=== PATIENT | female | born 1960 | race Caucasian/White ===

== ENCOUNTER 2018-05-06 13:25 | Emergency (ER) | payer BC ==
[2018-05-06 14:37] VITALS: BP 141/87
--- NOTE | 2018-05-06 15:20 | EDM.PDOC ---
ED HPI GENERAL MEDICAL PROBLEM - General Chief Complaint: Lower Extremity Injury/Pain Stated Complaint: SWOLLEN TOE ON R FT Time Seen by Provider: 05/06/18 14:45 Source of Information: Reports: Patient History Limitations: Reports: No Limitations - History of Present Illness INITIAL COMMENTS - FREE TEXT/NARRATIVE: 58 yo with hx of morbid obesity and type DM presents with concerns of discoloration of the right 4th toe Has diabetic neuropathy Had right 5th toe amputated This morning noticed purple discoloration on top of right 4th toe Is concerned perhaps it is infected No significant [place] and in/out wheel chair No new shoes or socks, no trauma Otherwise feels well - Related Data Allergies Allergy/AdvReac Type Severity Reaction Status Date / Time pregabalin [From Lyrica] Allergy Chest Pain Verified 05/06/18 14:06 Home Meds: Home Meds Insulin Degludec [Tresiba Flextouch U-200] 46 units SUBCUT BEDTIME 03/28/16 [ History] Liraglutide [Victoza] 1.8 mg SUBCUT DAILY 12/28/16 [History] Spironolactone [Aldactone] 50 mg PO BID 02/08/17 [History] DULoxetine [Cymbalta] 60 mg PO DAILY 05/03/17 [History] Acetaminophen with Codeine [Tylenol with Codeine #3 Tablet] 1 - 2 tab PO Q4H PRN 07/26/17 [History] cephALEXin [Keflex] 500 mg PO Q8H #21 cap 05/06/18 [Rx] Past Medical History HEENT History: Reports: Cataract, Impaired Vision 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: , 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 Musculoskeletal History: Reports: Back Pain, Chronic, Fracture Psychiatric History: Reports: Depression Endocrine/Metabolic History: Reports: Diabetes, Type II, Obesity/BMI 30+ - Past Surgical History HEENT Surgical History: Reports: Cataract Surgery Musculoskeletal Surgical History: Reports: Other (See Below) Dermatological Surgical History: Reports: Other (See Below) Social & Family History - Tobacco Use Smoking Status *Q: Never Smoker Review of Systems - Review of Systems Review Of Systems: See Below Constitutional: Reports: No Symptoms Eyes: Reports: No Symptoms Ears: Reports: No Symptoms Nose: Reports: No Symptoms Mouth/Throat: Reports: No Symptoms Respiratory: Reports: No Symptoms Cardiovascular: Reports: No Symptoms GI/Abdominal: Reports: No Symptoms Genitourinary: Reports: No Symptoms Musculoskeletal: Reports: No Symptoms Skin: Reports: Change in Color Neurological: Reports: No Symptoms Psychiatric: Reports: No Symptoms ED EXAM, GENERAL - Physical Exam Exam: See Below Exam Limited By: No Limitations General Appearance: Alert, No Apparent Distress Nose: Normal Inspection Throat/Mouth: Normal Inspection Head: Atraumatic Neck: Normal Inspection Respiratory/Chest: No Respiratory Distress Cardiovascular: Regular Rate, Rhythm GI/Abdominal: Soft, No Distention Extremities: Other (right 4th toe with purple discoloration, gross sensation and cap refill intact. No warmth or redness) Psychiatric: Normal Affect Course - Vital Signs Last Recorded V/S: Last Vital Signs Temp 35.7 C 05/06/18 14:44 Pulse 73 05/06/18 14:44 Resp 16 05/06/18 14:44 BP 141/87 H 05/06/18 14:44 Pulse Ox 95 05/06/18 14:44 - Re-Assessments/Exams Free Text/Narrative Re-Assessment/Exam: 58 yo with hx of type II DM, neuropathy, prior right 5 toe amp presents with concerns of discoloration of the right 4th toe Doesn't appear infected on exam Likely due to worsening chronic microvascular disease, no intervention current indicated for this Patient extremely concerned it is infected, prescribed course of keflex until she can see PCP or stone and plate preparer apprentice 05/06/18 15:25 Departure - Departure Time of Disposition: 15:19 Disposition: Home, Self-Care 01 Clinical Impression: Discolored skin - Discharge Information Prescriptions: cephALEXin [Keflex] 500 mg PO Q8H #21 cap Referrals: Jordan Zuniga NP [Primary Care Provider] - Forms: ED Department Discharge Additional Instructions: As discussed, please follow up with your primary doctor or stone and plate preparer apprentice this week Take the prescribed antibiotic
== END 2018-05-06 15:37 | disposition home or self-care (01) ==
LOC: JP.ED 13:25
DX: L81.9 Disorder of pigmentation, unspecified (principal); E11.40 Type 2 diabetes mellitus with diabetic neuropathy, unspecified; Z79.899 Other long term (current) drug therapy; Z89.422 Acquired absence of other left toe(s); Z79.4 Long term (current) use of insulin; Z88.8 Allergy status to other drugs, medicaments and biological substances
CPT/HCPCS: 99283

== ENCOUNTER 2018-06-20 14:55 | Outpatient (CLI) | payer BC ==
[~2018-06-20 14:55] MED LIST: Bupivacaine 0.5% 30 ML SDV ONE; methylPREDNISolone Acetate 40 MG/ML SDV ONE
[2018-06-20 15:33] VITALS: BP 157/89; PULSE 79
--- NOTE | 2018-06-20 16:42 | ANES ---
DATE OF SERVICE: 06/20/2018 INDICATION: Mrs. Link is a 58-year-old female patient, referred to the [facility] to us by Jordan Zuniga. She is here today for trigger point injections. We have been having a very difficult time getting her approved for an epidural steroid injection under fluoroscopy. So, she is in so much pain that we decided just to do trigger points today and see if we can at least get her by until she is approved. She has been having quite a bit of left-sided back pain as well as down into her leg and foot. Therefore, I think the epidurals would really benefit her. Please see the orders for the patient's preprocedure diagnosis as well as ICD-10 code. The risks and benefits of the procedure were explained to the patient, she wished to proceed with trigger point injections. TECHNIQUE: I did find 21 noticeable left-sided lumbosacral trigger points. I injected each of these with 1 to 2 mL of 0.5% Sensorcaine with a Depo-Medrol mixture. I did inject more than 3 muscle groups. She tolerated the procedure very nicely. Her vital signs remained stable throughout the procedure and nurse was with me for the entire procedure. There were no anesthesia complications noted. She is going to return in 7 weeks for trigger point injections unless she needs to come in here earlier. Again, we will wait for approval for epidural steroid injection to schedule her for that. Douglas Brambila CRNA /[id number]
== END 2018-06-20 15:33 | disposition home or self-care (01) ==
LOC: JP.PAIN 14:55
PROVIDERS: ATTEND Nurse Practitioner Family
DX: M51.16 Intervertebral disc disorders with radiculopathy, lumbar region (principal); M79.10 Myalgia, unspecified site
CPT/HCPCS: 20553; J1030; J3490

== ENCOUNTER 2018-08-19 15:57 | Emergency (ER) | payer BC ==
[2018-08-19 16:48] VITALS: BP 129/78; PULSE 81
--- NOTE | 2018-08-19 17:42 | EDM.PDOC ---
ED HPI GENERAL MEDICAL PROBLEM - General Chief Complaint: Skin Complaint Stated Complaint: ULCER ON LEFT FOOT Time Seen by Provider: 08/19/18 17:45 Source of Information: Reports: Patient History Limitations: Reports: No Limitations - History of Present Illness INITIAL COMMENTS - FREE TEXT/NARRATIVE: pt has a ulcer present on the left great toe. This is very smelly. She was recently seen by Dr Solorio and Dr mauricio. Onset: Gradual, Other ( It has changed over the last 2 days. ) Duration: Hour(s): Location: Reports: Lower Extremity, Left Associated Symptoms: Reports: No Other Symptoms Left Foot Pain Score (Numeric/FACES): 1 - Related Data Allergies Allergy/AdvReac Type Severity Reaction Status Date / Time pregabalin [From Lyrica] Allergy Chest Pain Verified 08/19/18 16:49 Home Meds: Home Meds Insulin Degludec [Tresiba Flextouch U-200] 64 units SUBCUT BEDTIME 03/28/16 [ History] Liraglutide [Victoza] 1.8 mg SUBCUT DAILY 12/28/16 [History] Spironolactone [Aldactone] 50 mg PO BID 02/08/17 [History] DULoxetine [Cymbalta] 60 mg PO DAILY 05/03/17 [History] Acetaminophen with Codeine [Tylenol with Codeine #3 Tablet] 1 - 2 tab PO Q4H PRN 07/26/17 [History] Empagliflozin [Jardiance] 10 mg PO DAILY 08/19/18 [History] Past Medical History HEENT History: Reports: Cataract, Impaired Vision 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: , 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 Musculoskeletal History: Reports: Back Pain, Chronic, Fracture Psychiatric History: Reports: Depression Endocrine/Metabolic History: Reports: Diabetes, Type II, Obesity/BMI 30+ - Infectious Disease History Infectious Disease History: Reports: Chicken Pox, Measles, Mumps - Past Surgical History HEENT Surgical History: Reports: Cataract Surgery Dermatological Surgical History: Reports: Other (See Below) Social & Family History - Tobacco Use Smoking Status *Q: Never Smoker Second Hand Smoke Exposure: No - Caffeine Use Caffeine Use: Reports: Coffee, Soda - Recreational Drug Use Recreational Drug Use: No ED ROS GENERAL - Review of Systems Review Of Systems: See Below Constitutional: Reports: No Symptoms HEENT: Reports: No Symptoms Respiratory: Reports: No Symptoms Cardiovascular: Reports: No Symptoms Endocrine: Reports: No Symptoms GI/Abdominal: Reports: No Symptoms : Reports: No Symptoms Musculoskeletal: Reports: Other (ulcer on the left great toe area. ) Skin: Reports: No Symptoms Neurological: Reports: No Symptoms Psychiatric: Reports: No Symptoms ED EXAM, SKIN/RASH Exam: See Below Text/Narrative:: pt has a ulcer on the left great toe. Exam Limited By: No Limitations General Appearance: Alert, Mild Distress Extremities: Other (left great toe has a smeely ulcer which looks necrotic in the center. There is no definite pus type drainage. ) Neurological: Alert, Oriented, Normal Cognition Course - Vital Signs Last Recorded V/S: Last Vital Signs Temp 36.3 C 08/19/18 16:56 Pulse 81 08/19/18 16:56 Resp 16 08/19/18 16:56 BP 129/78 08/19/18 16:56 Pulse Ox 95 08/19/18 16:56 - Orders/Labs/Meds Orders: Active Orders 24 hr Category Date Time Status Toes Great Toe Lt TA [CR] Stat Exams 08/19/18 17:09 Taken CULTURE WOUND + SMEAR [RM] Stat Lab 08/19/18 17:14 Results - Re-Assessments/Exams Free Text/Narrative Re-Assessment/Exam: 08/19/18 17:50 xray was obtained and there is questionable bone involvement. will await radiology reading Departure - Departure Time of Disposition: 17:37 Disposition: Home, Self-Care 01 Condition: Fair Clinical Impression: Chronic ulcer of left foot with necrosis of muscle - Discharge Information Referrals: Jordan Zuniga RAIL CAR PAINTER/SANDBLASTER [Primary Care Provider] - Forms: ED Department Discharge Care Plan Goals: appt with Dr Solorio Monday or Monday, keep covered with a dry dressing, augmentin 875 bid for the next 3 days-- Dr Solorio will decide regarding ongoing antibiotics. He may want to get Dr mauricio involved - My Orders Last 24 Hours: My Active Orders 08/19/18 17:09 Toes Great Toe Lt TA [CR] Stat 08/19/18 17:14 CULTURE WOUND + SMEAR [RM] Stat - Assessment/Plan Last 24 Hours: My Active Orders 08/19/18 17:09 Toes Great Toe Lt TA [CR] Stat 08/19/18 17:14 CULTURE WOUND + SMEAR [RM] Stat
[2018-08-19] MEDS ORDERED: Amoxicillin/Clavulanate K 875-125 MG Tab PO ONE (17:57)
--- NOTE | 2018-08-19 17:59 | CRLCR ---
INDICATION: Left great toe ulcer. TECHNIQUE: Three view. FINDINGS: The soft tissue defect adjacent to the 1st metatarsal head is noted medially. No destructive bony changes are seen of the left great toe. Degenerative change of the interphalangeal joint is noted. IMPRESSION: Soft tissue defect identified base of left great toe. No destructive bony changes are noted. No fracture is seen. Dictated by Keith Stuart MD @ 08/19/2018 5:58:56 PM Dictated by: Keith Stuart MD @ 08/19/2018 17:59:04 (Electronically Signed)
== END 2018-08-19 18:12 | disposition home or self-care (01) ==
LOC: JP.ED 15:57
DX: E11.621 Type 2 diabetes mellitus with foot ulcer (principal); L97.523 Non-pressure chronic ulcer of other part of left foot with necrosis of muscle; E66.9 Obesity, unspecified; Z79.899 Other long term (current) drug therapy; Z79.4 Long term (current) use of insulin; Z88.8 Allergy status to other drugs, medicaments and biological substances; Z68.43 Body mass index [BMI] 50.0-59.9, adult
CPT/HCPCS: 73660; 87070; 87077; 87205; 99283; A9270

== ENCOUNTER 2018-08-20 14:35 | Inpatient (IN) | payer BC ==
[2018-08-20] MEDS: Piperacillin/Tazobactam/Dext 3.375 GM in Premix Bag 1 BAG IV SCH ×2 (15:53→22:13)
[2018-08-20] MEDS ORDERED: Acetaminophen/Codeine 300-30 MG Tab PO PRN (16:25)
[2018-08-20] MEDS ORDERED: Glucose Gel 15 GM in 37.5 GM Tube PO PRN (16:28)
[2018-08-20] MEDS ORDERED: 50% Dextrose in Water 50 ML Syringe IV PRN (16:28)
[2018-08-20] MEDS ORDERED: Sodium Chloride 0.9% 10 ML Syringe FLUSH PRN (16:31)
[2018-08-20] MEDS ORDERED: Polyethylene Glycol 3350 Powder 17 GM Packet PO PRN (16:31)
[2018-08-20] MEDS ORDERED: Acetaminophen 325 MG Tab PO PRN (16:31)
[2018-08-20] MEDS ORDERED: Ondansetron 4 MG/2 ML SDV IV PRN (16:31)
--- NOTE | 2018-08-20 16:53 | PCM.HP ---
H&P History of Present Illness - General Date of Service: 08/20/18 Admit Problem/Dx: Admission Diagnosis/Problem Admission Diagnosis/Problem Diabetic foot ulcer Source of Information: Patient, Provider, RN Notes Reviewed History Limitations: Reports: No Limitations - History of Present Illness Initial Comments - Free Text/Narative: Ms. Link is a 58-year-old woman who was admitted through the emergency department with weakness, secondary to an infected diabetic foot ulcer on the left foot. She has had difficulty with an ulcer on the left medial foot for the past extubate weeks. She had been followed regularly in the clinic and the ulcer was doing well until a few days ago when she is noted increased swelling at the base of the left first toe and malodorous drainage from the ulcer. She has felt more weak and appetite has been somewhat diminished. She is not aware of significant temperature elevation or chills. She has a long-standing history of type 2 diabetes mellitus and reports poor control with blood sugars running in the 240 range. - Related Data Allergies/Adverse Reactions: Allergies Allergy/AdvReac Type Severity Reaction Status Date / Time pregabalin [From Lyrica] Allergy Chest Pain Verified 08/19/18 16:49 Home Medications: Home Meds Insulin Degludec [Tresiba Flextouch U-200] 64 units SUBCUT BEDTIME 03/28/16 [ History] Liraglutide [Victoza] 1.8 mg SUBCUT BEDTIME 12/28/16 [History] Spironolactone [Aldactone] 50 mg PO BID 02/08/17 [History] DULoxetine [Cymbalta] 60 mg PO DAILY 05/03/17 [History] Acetaminophen with Codeine [Tylenol with Codeine #3 Tablet] 1 - 2 tab PO Q4H PRN 07/26/17 [History] Empagliflozin [Jardiance] 10 mg PO DAILY 08/19/18 [History] Amoxicillin/Potassium Clav [Augmentin 875-125 Tablet] 1 each PO BID 08/20/18 [ History] Aspirin [Halfprin] PO DAILY 08/20/18 [History] atorvaSTATin [Lipitor] 10 mg PO 08/20/18 [History] Past Medical History HEENT History: Reports: Cataract, Impaired Vision 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: , 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 Musculoskeletal History: Reports: Back Pain, Chronic, Fracture Psychiatric History: Reports: Depression Endocrine/Metabolic History: Reports: Diabetes, Type II, Obesity/BMI 30+ - Infectious Disease History Infectious Disease History: Reports: Chicken Pox, Measles, Mumps - Past Surgical History HEENT Surgical History: Reports: Cataract Surgery Dermatological Surgical History: Reports: Other (See Below) Social & Family History - Family History Family Medical History: Noncontributory - Tobacco Use Smoking Status *Q: Never Smoker - Caffeine Use Caffeine Use: Reports: Coffee - Recreational Drug Use Recreational Drug Use: No H&P Review of Systems - Review of Systems: Review Of Systems: See Below General: Reports: Malaise, Weakness, Decreased Appetite. Denies: Fever, Chills HEENT: Reports: No Symptoms Pulmonary: Reports: No Symptoms Cardiovascular: Reports: No Symptoms Gastrointestinal: Reports: No Symptoms Genitourinary: Reports: No Symptoms Musculoskeletal: Reports: Other (Ulcer with drainage medial aspect left foot) Skin: Reports: No Symptoms Psychiatric: Reports: No Symptoms Neurological: Reports: No Symptoms Hematologic/Lymphatic: Reports: No Symptoms Immunologic: Reports: No Symptoms Exam - Exam Exam: See Below - Vital Signs Weight: 374 lb - Exam Quality Assessment: DVT Prophylaxis HEENT: Conjunctiva Clear, Hearing Intact, Mucosa Moist & [place], Normal Nasal Septum, Posterior Pharynx Clear, Pupils Equal Neck: Supple, Trachea Midline, +2 Carotid Pulse wo Bruit Lungs: Clear to Auscultation, Normal Respiratory Effort Cardiovascular: Regular Rate, Regular Rhythm, Normal S1, Normal S2. No: Systolic Murmur, Diastolic Murmur GI/Abdominal Exam: Soft, Non-Tender, No Organomegaly, No Distention Extremities: Non-Tender, Other (1 cm ulcer medial aspect left first MTP joint, with associated erythema and swelling of the toe and surrounding area) Neurological: Cranial Nerves Intact, Strength Equal Bilateral, Normal Speech, Normal Tone. No: Sensation Intact (Peripheral neuropathy) Neuro Extensive - Mental Status: Alert, Oriented x3, Normal Mood/Affect, Normal Cognition, Memory Intact - Patient Data Lab Results Last 24 hrs: Laboratory Results - last 24 hr 08/20/18 Range/Units 16:14 WBC 10.4 (4.5-11.0) K/uL RBC 4.69 (3.30-5.50) M/uL Hgb 13.4 (12.0-15.0) g/dL Hct 41.0 (36.0-48.0) % MCV 87 (80-98) fL MCH 29 (27-31) pg MCHC 33 (32-36) % Plt Count 222 (150-400) K/uL Neut % (Auto) 65 (36-66) % Lymph % (Auto) 26 (24-44) % [place] % (Auto) 7 H (2-6) % Eos % (Auto) 1 L (2-4) % Baso % (Auto) 0 (0-1) % Result Diagrams: 08/20/18 16:14 *Q Meaningful Use (ADM) - VTE Risk Assess *Q Each Risk Factor Represents 1 Point: Age 41 - 59 years, Obesity ( BMI > 25 kg/m2 ), Medical Patient Currently on Bedrest Total Score 1 Point Risk Factors: 3 Each Risk Factor Represents 2 Points: None Total Score 2 Point Risk Factors: 0 Each Risk Factor Represents 3 Points: None Total Score 3 Point Risk Factors: 0 Each Risk Factor Represents 5 Points: None Total Score 5 Point Risk Factors: 0 Venous Thromboembolism Risk Factor Score *Q: 3 Problem List Initiated/Reviewed/Updated: Yes Orders Last 24hrs: Active Orders 24 hr Category Date Time Status Patient Status [ADT] Routine ADT 08/20/18 16:29 Active Bedrest Bedside Commode [RC] ASDIRECTED Care 08/20/18 15:48 Active Blood Glucose Check, Bedside [RC] QIDACANDBED Care 08/20/18 16:29 Active Communication Order [RC] STAT Care 08/20/18 16:29 Active Diabetes Education [RC] Click to Edit Care 08/20/18 16:29 Active Dressing Change [Wound Care] [RC] DAILY Care 08/20/18 16:03 Active EKG Documentation Completion [RC] ASDIRECTED Care 08/20/18 15:59 Active Elevate Extremity [RC] ASDIRECTED Care 08/20/18 15:48 Active Height and Weight [RC] DAILY Care 08/20/18 16:29 Active Intake and Output [RC] QSHIFT Care 08/20/18 16:29 Active Notify Provider Vital Signs [RC] ASDIRECTED Care 08/20/18 16:29 Active Notify Provider [RC] PRN Care 08/20/18 16:29 Active Oxygen Therapy [RC] PRN Care 08/20/18 16:29 Active Peripheral IV Care [RC] . DIRECTED Care 08/20/18 16:33 Active VTE/DVT Education [RC] Per Unit Routine Care 08/20/18 16:29 Active Vital Signs [RC] Q4H Care 08/20/18 16:29 Active Vital Signs [RC] Q8H Care 08/20/18 15:47 Inactive PT Evaluation and Treatment [CONS] Routine Cons 08/20/18 16:31 Active Consistent Carbohydrate Diet [DIET] Diet 08/20/18 Dinner Active Nothing per Oral After Midnight Diet [DIET] Diet 08/21/18 Breakfast Active CV Ankle Brachial Index (SHIRA) [US] Routine Exams 08/20/18 16:01 Ordered Lwr Ext Non Joint w Cont Lt [MR] Routine Exams 08/20/18 15:59 Ordered BASIC METABOLIC PANEL,BMP [CHEM] AM Lab 08/21/18 05:11 Ordered C-REACTIVE PROTEIN [CHEM] Routine Lab 08/20/18 16:14 Received CBC W/O DIFF,HEMOGRAM [HEME] AM Lab 08/21/18 05:11 Ordered CBC WITH AUTO DIFF [HEME] Routine Lab 08/20/18 16:14 Results COMPREHENSIVE METABOLIC PN,CMP [CHEM] Routine Lab 08/20/18 16:14 Received GLUCOSE POC LAB TO COLLECT [POC] QIDACANDBED Lab 08/20/18 21:00 Ordered GLUCOSE POC LAB TO COLLECT [POC] QIDACANDBED Lab 08/21/18 07:30 Ordered GLUCOSE POC LAB TO COLLECT [POC] QIDACANDBED Lab 08/21/18 11:30 Ordered GLUCOSE POC LAB TO COLLECT [POC] QIDACANDBED Lab 08/21/18 16:30 Ordered GLUCOSE POC LAB TO COLLECT [POC] QIDACANDBED Lab 08/21/18 21:00 Ordered GLUCOSE POC LAB TO COLLECT [POC] QIDACANDBED Lab 08/22/18 07:30 Ordered GLUCOSE POC LAB TO COLLECT [POC] QIDACANDBED Lab 08/22/18 11:30 Ordered GLUCOSE POC LAB TO COLLECT [POC] QIDACANDBED Lab 08/22/18 16:30 Ordered GLUCOSE POC LAB TO COLLECT [POC] QIDACANDBED Lab 08/22/18 21:00 Ordered GLUCOSE POC LAB TO COLLECT [POC] QIDACANDBED Lab 08/23/18 07:30 Ordered GLUCOSE POC LAB TO COLLECT [POC] QIDACANDBED Lab 08/23/18 11:30 Ordered GLUCOSE POC LAB TO COLLECT [POC] QIDACANDBED Lab 08/23/18 16:30 Ordered GLUCOSE POC LAB TO COLLECT [POC] QIDACANDBED Lab 08/23/18 21:00 Ordered GLUCOSE POC LAB TO COLLECT [POC] QIDACANDBED Lab 08/24/18 07:30 Ordered GLUCOSE POC LAB TO COLLECT [POC] QIDACANDBED Lab 08/24/18 11:30 Ordered GLUCOSE POC LAB TO COLLECT [POC] QIDACANDBED Lab 08/24/18 16:30 Ordered GLUCOSE POC LAB TO COLLECT [POC] QIDACANDBED Lab 08/24/18 21:00 Ordered GLUCOSE POC LAB TO COLLECT [POC] QIDACANDBED Lab 08/25/18 07:30 Ordered GLUCOSE POC LAB TO COLLECT [POC] QIDACANDBED Lab 08/25/18 11:30 Ordered MAGNESIUM [CHEM] AM Lab 08/21/18 05:11 Ordered SEDIMENTATION RATE MANUAL [HEME] Routine Lab 08/20/18 16:14 Results Acetaminophen [Tylenol] Med 08/20/18 16:31 Active 650 mg PO Q4H PRN Acetaminophen/Codeine [Tylenol with Codeine No.3 300MG/ Med 08/20/18 16:25 Active 30MG] 1 - 2 tab PO Q4H PRN Aspirin [Halfprin] Med 08/21/18 09:00 Unverified DOSE UNIT RTE FREQ DULoxetine [Cymbalta] Med 08/21/18 09:00 Active 60 mg PO DAILY Dextrose 50% in Water Med 08/20/18 16:28 Active 50 ml IV ONETIME PRN Dextrose [Glutose 15] Med 08/20/18 16:28 Active 15 gm PO ONETIME PRN Empagliflozin [Jardiance] Med 08/21/18 09:00 Ordered 10 mg PO DAILY Heparin Sodium Med 08/20/18 18:00 Active 5,000 units SUBCUT Q8H Insulin Degludec [Tresiba Flextouch U-200] Med 08/20/18 21:00 Ordered 64 units SUBCUT BEDTIME Insulin Lispro [HumaLOG] Med 08/20/18 17:00 Active See Protocol SUBCUT QIDACANDBED Lactobacillus Rhamnosus GG [Culturelle] Med 08/20/18 18:00 Active 1 cap PO BID Liraglutide [Victoza] Med 08/20/18 21:00 Active 1.8 mg SUBCUT BEDTIME Ondansetron [Zofran] Med 08/20/18 16:31 Ordered 4 mg IV Q4H PRN Piperacillin/Tazobactam/Dext [Zosyn in Dextrose Iso- Med 08/20/18 16:00 Active Osmotic 3.375 GM] 3.375 gm Premix Bag 1 bag IV Q6H Polyethylene Glycol 3350 [MiraLAX] Med 08/20/18 16:31 Ordered 17 gm PO DAILY PRN Sodium Chloride 0.9% [Normal Saline] 1,000 ml Med 08/20/18 16:45 Ordered IV ASDIRECTED Sodium Chloride 0.9% [Saline Flush] Med 08/20/18 16:31 Ordered 10 ml FLUSH ASDIRECTED PRN Spironolactone [Aldactone] Med 08/20/18 21:00 Active 50 mg PO BID Vancomycin 2.5 gm Med 08/20/18 17:00 Active Sodium Chloride 0.9% [Normal Saline] 500 ml IV ONETIME Peripheral IV Insertion Adult [OM.PC] Routine Oth 08/20/18 16:31 Ordered Resuscitation Status Routine Resus Stat 08/20/18 16:28 Ordered EKG 12 Lead [EK] Routine Ther 08/20/18 15:58 Ordered Medication Orders Acetaminophen (Tylenol) 650 mg PO Q4H PRN PRN Reason: Pain (Mild 1-3)/fever Acetaminophen/Codeine Phosphate (Tylenol With Codeine No.3 300mg/30mg) 1 - 2 tab PO Q4H PRN PRN Reason: Pain Dextrose (Glutose 15) 15 gm PO ONETIME PRN PRN Reason: Hypoglycemia Dextrose/Water (Dextrose 50% In Water) 50 ml IV ONETIME PRN PRN Reason: Hypoglycemia Duloxetine HCl (Cymbalta) 60 mg PO DAILY TELLO Heparin Sodium (Porcine) (Heparin Sodium) 5,000 units SUBCUT Q8H TELLO Stop: 08/21/18 02:01 Piperacillin/Tazobactam/ (Dextrose 3.375 gm/ Premix) 50 mls @ 100 mls/hr IV Q6H TELLO Last Admin: 08/20/18 15:53 Dose: 100 mls/hr Vancomycin HCl 2.5 gm/ Sodium (Chloride) 500 mls @ 250 mls/hr IV ONETIME ONE Stop: 08/20/18 18:59 Sodium Chloride (Normal Saline) 1,000 mls @ 125 mls/hr IV ASDIRECTED [facility] Insulin Human Lispro (Humalog) 0 unit SUBCUT QIDACANDBED TELLO; Protocol Lactobacillus Rhamnosus (Culturelle) 1 cap PO BID TELLO Liraglutide (Victoza) 1.8 mg SUBCUT BEDTIME TELLO Non-Formulary Medication (Insulin Degludec [Tresiba Flextouch U-200]) 64 units SUBCUT BEDTIME TELLO Non-Formulary Medication (Empagliflozin [Jardiance]) 10 mg PO DAILY TELLO Ondansetron HCl (Zofran) 4 mg IV Q4H PRN PRN Reason: Nausea/Vomiting Polyethylene Glycol (Miralax) 17 gm PO DAILY PRN PRN Reason: Constipation Sodium Chloride (Saline Flush) 10 ml FLUSH ASDIRECTED PRN PRN Reason: Keep Vein Open Spironolactone (Aldactone) 50 mg PO BID [facility] Assessment/Plan Comment:: ASSESSMENT AND PLAN DIABETIC ULCER LEFT FOOT-ulcer present for 6-8 weeks with new infection in the past few days. Gram stain obtained yesterday shows gram-positive cocci, gram- positive rods, and grand negative rods. -Wound culture pending -Broad-spectrum IV antibiotic therapy pending culture results; vancomycin and Zosyn -Dr. Garza to follow -MRI of the foot in a.m. -Nothing by mouth after midnight -Arterial Doppler studies of the left leg TYPE 2 DIABETES MELLITUS -Continue outpatient medications including long-acting insulin -4 times a day glucometers -Moderate dose sliding scale Humulin CHRONIC LOW BACK PAIN -Continue outpatient pain medication regimen MAINTENANCE ISSUES -DVT prophylaxis; heparin, hold at midnight pending possible surgery tomorrow -GI prophylaxis; not indicated -Gama catheter; not indicated -Nutrition; consistent carb diet, nothing by mouth after midnight -Nicotine dependence; not required CODE STATUS-FULL CODE ADMISSION STATUS-patient will be admitted to inpatient status, expect at least a 2 night hospital stay for evaluation and management of problems as outlined above. At the time of this admission I do not reasonably expected evaluation and management of this problem will require more than a 96 hour hospital stay. DISPOSITION-anticipate discharge to home after the hospital stay. PRIMARY CARE PROVIDER-Jordan Zuniga
[2018-08-20] MEDS ORDERED: Vancomycin 2.5 GM in Sodium Chloride 0.9% 500 ML IV ONE (17:00)
[2018-08-20] MEDS: Insulin Lispro 100 Unit/ML 3 ML KwikPen SUBCUT SCH ×2 (17:33→22:02)
[2018-08-20] MEDS: Lactobacillus Rhamnosus GG (Probiotic) Cap PO SCH ×2 (17:33→21:59)
[2018-08-20] MEDS: Heparin Sodium 5,000 Units/ML Vial SUBCUT SCH (17:33)
[2018-08-20] MEDS: Sodium Chloride 0.9% 1,000 ML IV SCH (20:01)
[2018-08-20] MEDS ORDERED: INSULIN DEGLUDEC SUBCUT SCH (21:00)
[2018-08-20] MEDS: Spironolactone 25 MG Tab PO SCH (21:59)
[2018-08-20] MEDS: Liraglutide (rDNA Origin) 0.6 MG/0.1 ML 3 ML Pen SUBCUT SCH (22:00)
[2018-08-20] MEDS: Gabapentin 400 MG Cap PO SCH (22:11)
[2018-08-21] MEDS: Heparin Sodium 5,000 Units/ML Vial SUBCUT SCH (01:59)
[2018-08-21] MEDS: Piperacillin/Tazobactam/Dext 3.375 GM in Premix Bag 1 BAG IV SCH ×4 (04:24→21:16)
[2018-08-21] MEDS: Vancomycin 2 GM in Sodium Chloride 0.9% 500 ML IV SCH ×2 (04:59→16:25)
[2018-08-21] MEDS ORDERED: Gadoteridol 279.3 MG/ML 20 ML SDV IV SCH (08:30)
[2018-08-21] MEDS ORDERED: EMPAGLIFLOZIN 10 MG PO SCH (09:00)
[2018-08-21] MEDS: Gabapentin 400 MG Cap PO SCH (11:13)
[2018-08-21] MEDS: Aspirin 81 MG Tab.EC PO SCH (11:13)
[2018-08-21] MEDS: DULoxetine 30 MG Cap PO SCH ×2 (11:14→14:08)
[2018-08-21] MEDS: Lactobacillus Rhamnosus GG (Probiotic) Cap PO SCH ×2 (11:14→21:23)
[2018-08-21] MEDS: Spironolactone 25 MG Tab PO SCH ×2 (11:14→21:24)
[2018-08-21] MEDS: Insulin Lispro 100 Unit/ML 3 ML KwikPen SUBCUT SCH ×4 (11:14→21:18)
[2018-08-21] MEDS: Sodium Chloride 0.9% 1,000 ML IV SCH (11:20)
[2018-08-21] MEDS ORDERED: Propofol 200 MG/20 ML SDV ONE ×3 (11:42→12:42)
[2018-08-21] MEDS ORDERED: Midazolam 1 MG/ML 2 ML SDV ONE (11:42)
[2018-08-21] MEDS ORDERED: fentaNYL 100 MCG/2 ML SDV ONE (11:42)
[2018-08-21] MEDS ORDERED: Bupivacaine 0.5% 50 ML MDV ONE (12:30)
--- NOTE | 2018-08-21 12:51 | PCM.PN ---
- General Info Date of Service: 08/21/18 Subjective Update: Ms. Link has been stable since admission yesterday, afebrile with good vital signs. MRI obtained this morning shows evidence of septic arthritis involving the MTP joint as well as an area of osteomyelitis. Functional Status: Reports: Pain Controlled, Urinating - Review of Systems General: Reports: Weakness. Denies: Fever, Chills Pulmonary: Reports: No Symptoms Cardiovascular: Reports: No Symptoms Gastrointestinal: Reports: No Symptoms - Patient Data Vitals - Most Recent: Last Vital Signs Temp 96.1 F 08/21/18 07:30 Pulse 73 08/21/18 07:30 Resp 17 08/21/18 07:30 BP 115/67 08/21/18 07:30 Pulse Ox 94 L 08/21/18 07:30 Weight - Most Recent: 371 lb 6.392 oz I&O - Last 24 Hours: Intake & Output 08/20/18 08/21/18 08/21/18 22:59 06:59 14:59 Intake Total 1200 1659 Balance 1200 1659 Lab Results Last 24 Hours: Laboratory Results - last 24 hr 08/20/18 08/20/18 08/20/18 Range/Units 16:14 16:14 16:14 WBC 10.4 (4.5-11.0) K/uL RBC 4.69 (3.30-5.50) M/uL Hgb 13.4 (12.0-15.0) g/dL Hct 41.0 (36.0-48.0) % MCV 87 (80-98) fL MCH 29 (27-31) pg MCHC 33 (32-36) % Plt Count 222 (150-400) K/uL Neut % (Auto) 65 (36-66) % Lymph % (Auto) 26 (24-44) % Mckenzie % (Auto) 7 H (2-6) % Eos % (Auto) 1 L (2-4) % Baso % (Auto) 0 (0-1) % ESR 72 H (0-25) mm/hr Sodium 137 L (140-148) mmol/L Potassium 4.2 (3.6-5.2) mmol/L Chloride 99 L (100-108) mmol/L Carbon Dioxide 32 (21-32) mmol/L Anion Gap 10.2 (5.0-14.0) mmol/L BUN 21 H D (7-18) mg/dL Creatinine 0.9 (0.6-1.0) mg/dL Est Cr Clr Drug Dosing 72.78 mL/min Estimated GFR (MDRD) > 60 (>60) Glucose 231 H (74-106) mg/dL Calcium 9.3 (8.5-10.1) mg/dL Magnesium (1.8-2.4) mg/dL Total Bilirubin 0.6 (0.2-1.0) mg/dL AST 13 L (15-37) U/L ALT 31 (12-78) U/L Alkaline Phosphatase 101 (46-116) U/L C-Reactive Protein 7.78 H (0.0-0.3) mg/dL Total Protein 7.2 (6.4-8.2) g/dL Albumin 3.1 L (3.4-5.0) g/dL Globulin 4.1 H (2.3-3.5) g/dL Albumin/Globulin Ratio 0.8 L (1.2-2.2) 08/21/18 08/21/18 Range/Units 04:50 04:50 WBC 8.7 (4.5-11.0) K/uL RBC 4.46 (3.30-5.50) M/uL Hgb 12.6 (12.0-15.0) g/dL Hct 39.5 (36.0-48.0) % MCV 89 (80-98) fL MCH 28 (27-31) pg MCHC 32 (32-36) % Plt Count 211 (150-400) K/uL Neut % (Auto) (36-66) % Lymph % (Auto) (24-44) % Mckenzie % (Auto) (2-6) % Eos % (Auto) (2-4) % Baso % (Auto) (0-1) % ESR (0-25) mm/hr Sodium 140 (140-148) mmol/L Potassium 4.0 (3.6-5.2) mmol/L Chloride 103 (100-108) mmol/L Carbon Dioxide 30 (21-32) mmol/L Anion Gap 7.2 (5.0-14.0) mmol/L BUN 18 (7-18) mg/dL Creatinine 0.9 (0.6-1.0) mg/dL Est Cr Clr Drug Dosing 72.78 mL/min Estimated GFR (MDRD) > 60 (>60) Glucose 163 H (74-106) mg/dL Calcium 9.0 (8.5-10.1) mg/dL Magnesium 1.8 (1.8-2.4) mg/dL Total Bilirubin (0.2-1.0) mg/dL AST (15-37) U/L ALT (12-78) U/L Alkaline Phosphatase (46-116) U/L C-Reactive Protein (0.0-0.3) mg/dL Total Protein (6.4-8.2) g/dL Albumin (3.4-5.0) g/dL Globulin (2.3-3.5) g/dL Albumin/Globulin Ratio (1.2-2.2) Med Orders - Current: Current Medications Acetaminophen (Tylenol) 650 mg PO Q4H PRN PRN Reason: Pain (Mild 1-3)/fever Acetaminophen/Codeine Phosphate (Tylenol With Codeine No.3 300mg/30mg) 1 - 2 tab PO Q4H PRN PRN Reason: Pain Aspirin (Halfprin) 81 mg PO DAILY [facility] Last Admin: 08/21/18 11:13 Dose: Not Given Dextrose (Glutose 15) 15 gm PO ONETIME PRN PRN Reason: Hypoglycemia Dextrose/Water (Dextrose 50% In Water) 50 ml IV ONETIME PRN PRN Reason: Hypoglycemia Duloxetine HCl (Cymbalta) 60 mg PO DAILY [facility] Last Admin: 08/21/18 11:14 Dose: Not Given Gabapentin (Neurontin) 1,200 mg PO TID [facility] Last Admin: 08/21/18 11:13 Dose: Not Given Piperacillin/Tazobactam/ (Dextrose 3.375 gm/ Premix) 50 mls @ 100 mls/hr IV Q6H [facility] Last Admin: 08/21/18 11:19 Dose: 100 mls/hr Sodium Chloride (Normal Saline) 1,000 mls @ 125 mls/hr IV ASDIRECTED [facility] Last Admin: 08/21/18 11:20 Dose: 125 mls/hr Vancomycin HCl 2 gm/ Sodium (Chloride) 500 mls @ 250 mls/hr IV Q12H [facility] Last Admin: 08/21/18 04:59 Dose: 250 mls/hr Insulin Human Lispro (Humalog) 0 unit SUBCUT QIDACANDBED [facility]; Protocol Last Admin: 08/21/18 11:15 Dose: Not Given Lactobacillus Rhamnosus (Culturelle) 1 cap PO BID [facility] Last Admin: 08/21/18 11:14 Dose: Not Given Liraglutide (Victoza) 1.8 mg SUBCUT BEDTIME [facility] Last Admin: 08/20/18 22:00 Dose: 1.8 mg (Insulin Degludec [ Tresiba Flextouch U- 200]Pom 64 units SUBCUT BEDTIME [facility] Last Admin: 08/20/18 22:00 Dose: Not Given Empagliflozin ( Jardiance) 10 Mg Pom 0 mg PO DAILY [facility] Last Admin: 08/21/18 11:13 Dose: Not Given Ondansetron HCl (Zofran) 4 mg IV Q4H PRN PRN Reason: Nausea/Vomiting Polyethylene Glycol (Miralax) 17 gm PO DAILY PRN PRN Reason: Constipation Sodium Chloride (Saline Flush) 10 ml FLUSH ASDIRECTED PRN PRN Reason: Keep Vein Open Spironolactone (Aldactone) 50 mg PO BID [facility] Last Admin: 08/21/18 11:14 Dose: Not Given Discontinued Medications Bupivacaine HCl (Marcaine 0.5%) Confirm Administered Dose 50 ml .ROUTE .STK-MED ONE Stop: 08/21/18 12:31 Fentanyl (Sublimaze) Confirm Administered Dose 100 mcg .ROUTE .STK-MED ONE Stop: 08/21/18 11:43 Gadoteridol (Prohance) 20 ml IV . DIRECTED [facility] Stop: 08/21/18 10:00 Last Admin: 08/21/18 09:10 Dose: 20 ml Heparin Sodium (Porcine) (Heparin Sodium) 5,000 units SUBCUT Q8H [facility] Stop: 08/21/18 02:01 Last Admin: 08/21/18 01:59 Dose: 5,000 units Vancomycin HCl 2.5 gm/ Sodium (Chloride) 500 mls @ 250 mls/hr IV ONETIME ONE Stop: 08/20/18 18:59 Last Admin: 08/20/18 17:15 Dose: 250 mls/hr Midazolam HCl (Versed 1 Mg/Ml) Confirm Administered Dose 2 mg .ROUTE .STK-MED ONE Stop: 08/21/18 11:43 Propofol (Diprivan 20 Ml) Confirm Administered Dose 200 mg .ROUTE .STK-MED ONE Stop: 08/21/18 11:43 Propofol (Diprivan 20 Ml) Confirm Administered Dose 200 mg .ROUTE .STK-MED ONE Stop: 08/21/18 12:36 - Exam General: Alert, Oriented, Cooperative, Mild Distress Lungs: Clear to Auscultation, Normal Respiratory Effort Cardiovascular: Regular Rate, Regular Rhythm, No Murmurs GI/Abdominal Exam: Soft, Non-Tender, No Organomegaly, No Distention Extremities: Redness (And swelling left first toe and MTP joint with 1 cm ulcer) - Problem List Review Problem List Initiated/Reviewed/Updated: Yes - My Orders Last 24 Hours: My Active Orders 08/20/18 16:25 Acetaminophen/Codeine [Tylenol with Codeine No.3 300MG/30MG] 1 - 2 tab PO Q4H PRN 08/20/18 16:28 Dextrose 50% in Water 50 ml IV ONETIME PRN Dextrose [Glutose 15] 15 gm PO ONETIME PRN Resuscitation Status Routine 08/20/18 16:29 Patient Status [ADT] Routine Blood Glucose Check, Bedside [RC] QIDACANDBED Diabetes Education [RC] Click to Edit Height and Weight [RC] DAILY Intake and Output [RC] QSHIFT Notify Provider Vital Signs [RC] ASDIRECTED Notify Provider [RC] PRN Oxygen Therapy [RC] PRN Vital Signs [RC] Q4H 08/20/18 16:31 PT Evaluation and Treatment [CONS] Routine Acetaminophen [Tylenol] 650 mg PO Q4H PRN Ondansetron [Zofran] 4 mg IV Q4H PRN Polyethylene Glycol 3350 [MiraLAX] 17 gm PO DAILY PRN Sodium Chloride 0.9% [Saline Flush] 10 ml FLUSH ASDIRECTED PRN Peripheral IV Insertion Adult [OM.PC] Routine 08/20/18 16:33 Peripheral IV Care [RC] Q12H 08/20/18 16:45 Sodium Chloride 0.9% [Normal Saline] 1,000 ml IV ASDIRECTED 08/20/18 17:00 Insulin Lispro [HumaLOG] See Protocol SUBCUT QIDACANDBED 08/20/18 18:00 Lactobacillus Rhamnosus GG [Culturelle] 1 cap PO BID 08/20/18 21:00 Gabapentin [Neurontin] 1,200 mg PO TID Insulin Degludec [Tresiba Flextouch U-200] 64 units SUBCUT BEDTIME Liraglutide [Victoza] 1.8 mg SUBCUT BEDTIME Spironolactone [Aldactone] 50 mg PO BID 08/21/18 07:47 CV Ankle Brachial Index (SHIRA) [US] Routine 08/21/18 07:49 Lwr Ext Non Joint w wo Cont Lt [MR] Routine 08/21/18 09:00 Aspirin [Halfprin] 81 mg PO DAILY DULoxetine [Cymbalta] 60 mg PO DAILY Empagliflozin [Jardiance] 0 mg PO DAILY 08/21/18 16:30 GLUCOSE POC LAB TO COLLECT [POC] QIDACANDBED 08/21/18 21:00 GLUCOSE POC LAB TO COLLECT [POC] QIDACANDBED 08/21/18 Breakfast Nothing per Oral After Midnight Diet [DIET] 08/22/18 05:00 BASIC METABOLIC PANEL,BMP [CHEM] Timed CBC WITH AUTO DIFF [HEME] Timed 08/22/18 07:30 GLUCOSE POC LAB TO COLLECT [POC] QIDACANDBED 08/22/18 11:30 GLUCOSE POC LAB TO COLLECT [POC] QIDACANDBED 08/22/18 16:30 GLUCOSE POC LAB TO COLLECT [POC] QIDACANDBED 08/22/18 21:00 GLUCOSE POC LAB TO COLLECT [POC] QIDACANDBED 08/23/18 07:30 GLUCOSE POC LAB TO COLLECT [POC] QIDACANDBED 08/23/18 11:30 GLUCOSE POC LAB TO COLLECT [POC] QIDACANDBED 08/23/18 16:30 GLUCOSE POC LAB TO COLLECT [POC] QIDACANDBED 08/23/18 21:00 GLUCOSE POC LAB TO COLLECT [POC] QIDACANDBED 08/24/18 07:30 GLUCOSE POC LAB TO COLLECT [POC] QIDACANDBED 08/24/18 11:30 GLUCOSE POC LAB TO COLLECT [POC] QIDACANDBED 08/24/18 16:30 GLUCOSE POC LAB TO COLLECT [POC] QIDACANDBED 08/24/18 21:00 GLUCOSE POC LAB TO COLLECT [POC] QIDACANDBED 08/25/18 07:30 GLUCOSE POC LAB TO COLLECT [POC] QIDACANDBED 08/25/18 11:30 GLUCOSE POC LAB TO COLLECT [POC] QIDACANDBED - Plan Plan:: ASSESSMENT AND PLAN DIABETIC ULCER LEFT FOOT-ulcer present for 6-8 weeks with new infection in the past few days. MRI shows evidence of underlying septic arthritis as well as osteomyelitis -Wound culture pending -Broad-spectrum IV antibiotic therapy pending culture results; vancomycin and Zosyn -Dr. Garza to perform surgery today TYPE 2 DIABETES MELLITUS-glucose control fairly stable with current management -Continue outpatient medications including long-acting insulin -4 times a day glucometers -Moderate dose sliding scale Humulin CHRONIC LOW BACK PAIN -Continue outpatient pain medication regimen MAINTENANCE ISSUES -DVT prophylaxis; heparin, hold at midnight pending possible surgery tomorrow -GI prophylaxis; not indicated -Gama catheter; not indicated -Nutrition; consistent carb diet, nothing by mouth after midnight -Nicotine dependence; not required CODE STATUS-FULL CODE ADMISSION STATUS-patient will be admitted to inpatient status, expect at least a 2 night hospital stay for evaluation and management of problems as outlined above. At the time of this admission I do not reasonably expected evaluation and management of this problem will require more than a 96 hour hospital stay. DISPOSITION-anticipate discharge to home after the hospital stay. PRIMARY CARE PROVIDER-Jordan Zuniga
[2018-08-21] MEDS ORDERED: Lactated Ringers 1,000 ML ONE (12:58)
[2018-08-21] MEDS: Gabapentin 300 MG Cap PO SCH ×2 (14:07→21:23)
--- NOTE | 2018-08-21 14:09 | OR ---
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 PREOPERATIVE DIAGNOSIS: Septic joint with osteomyelitis of the first metatarsal head and proximal phalanx, left foot. POSTOPERATIVE DIAGNOSES: 1. Osteomyelitis of the left foot with diabetic foot ulcer, left foot. 2. Septic joint left first metatarsophalangeal joint. ANESTHESIA: Local with IV sedation. HEMOSTASIS: Obtained with an ankle tourniquet on the left ankle at 250 mmHg. ESTIMATED BLOOD LOSS: 10 mL. MATERIALS: One quarter-inch [place] drain was used. INJECTABLES: 20 mL of Marcaine 0.5% plain was injected preoperatively. PATHOLOGY: Aerobic and anaerobic cultures were taken and also a tissue culture was taken and the left great toe and the left first metatarsal head were sent for pathological examination. CONDITION: Stable. INDICATIONS FOR SURGERY: Osteomyelitis with necrotic ulcer and infected ulcer on the medial aspect of the left first metatarsal head and also septic joint and osteomyelitis in the left first metatarsal head. PROCEDURE IN DETAIL: The patient was brought to the operating room and placed on the operating table in supine position. Following IV sedation, anesthesia was obtained with a total of 20 mL Marcaine 0.5% plain. The left foot was then scrubbed, prepped, and draped in the usual aseptic manner and raised to 60 degrees for hemostasis. Tourniquet was inflated. Esmarch was not used because there was infection present. The foot was lowered to table. Skin incision was made around the base of the left great toe and around the ulceration on the medial aspect of the left first metatarsal head. Incisions were carried straight down to bone. The left great toe was disarticulated at the metatarsophalangeal joint and removed. We did note necrotic tissue with a small abscess around the first metatarsal head, especially on the dorsal side with garg necrotic tissue and foul malodor. Also, the distal aspect of the first metatarsal head was soft with probing with a blunt object, so then the metatarsal head was resected with a reciprocating saw. We removed all necrotic and malodorous tissue down to healthy bleeding tissue sharply and then flushed out the incision with 2 L of sterile saline and then reapproximated healthy edges with retention sutures of 3- 0 nylon in simple interrupted configuration and then placed 2 pieces of quarter-inch [place] drain. I then dressed the foot with Xeroform, 4x4s, Kerlix, and Coban. The patient was returned to the recovery room with vital signs stable and vascular status intact to both feet. The patient was given instructions to rest and elevate the left foot and maintain strict nonweightbearing. The patient to remain in-house. Orders were written to continue IV antibiotics, maintain strict nonweightbearing on the left foot. General Surgery, Dr. Solorio, to follow the patient and discharge the patient on appropriate antibiotics once the cultures come back. Podiatry to follow next week. Suresh Garza DPM /[id number]
--- NOTE | 2018-08-21 15:08 | CRLUS ---
Exam: Resting ankle-brachial indices. Indication: Left foot ulcer. Comparison: None. Findings: Maximum systolic blood pressure in the brachial artery: 125 mmHg Right lower extremity: PT: 140 mmHg (SHIRA 1.12); biphasic flow DP: 150 mmHg (SHIRA 1.20); biphasic flow Left lower extremity: PT: 150 mmHg (SHIRA 1.20); monophasic flow DP: 160 mmHg (SHIRA 1.26); monophasic flow Impression: 1. Bilateral resting ABIs are normal. 2. Patent bilateral pedal arteries with biphasic flow on the right and monophasic flow on the left. 3. Given discrepancy between normal left resting ABIs and monophasic flow in the left pedal arteries, consider toe-brachial indices for further evaluation as ABIs may be falsely elevated from heavily calcified arteries. Dictated by Niraj Yin MD @ Aug 21 2018 11:11AM (Electronically Signed)
--- NOTE | 2018-08-21 15:08 | CRLMR ---
HISTORY: Left great toe ulcer. TECHNIQUE: Axial, sagittal and coronal T1, stir and postcontrast T1 weighted images with fat saturation left foot. COMPARISON: Radiographs 08/19/2018. FINDINGS: There is a soft tissue ulcer along the medial aspect of the 1st metatarsophalangeal joint. There is adjacent soft tissue signal abnormality and enhancement compatible with cellulitis. A 1st metatarsophalangeal joint effusion is present with synovial thickening and prominent synovial enhancement. This likely indicates changes of septic arthritis given the proximity to the soft tissue ulcer. There is abnormal marrow signal within the 1st metatarsal head medially with bone marrow edema like signal on STIR sequences and abnormal enhancement following gadolinium administration. On the precontrast of short axis T1 images (e.g. image #22 of series 8), there is some effacement of the normal fatty marrow signal within the medial aspect of the 1st metatarsal head which likely indicates that the marrow changes relate to osteomyelitis. There is no significant effacement of the fatty marrow signal within the proximal phalanx of the great toe suggesting that the marrow changes within that bone are reactive. Bone marrow edema and mild increased enhancement within the medial sesamoid bone is not specific for osteomyelitis and more likely reactive as the fatty marrow signal within that bone appears largely preserved on the precontrast T1 weighted images. No other areas of potential osteomyelitis. There is generalized soft tissue edema involving the foot. Chronic denervation changes involving the foot musculature. No acute fracture. Degenerative changes within the midfoot and at the midfoot-forefoot junction. IMPRESSION: 1. Soft tissue ulcer along the medial aspect of the 1st metatarsophalangeal joint, left foot, with adjacent cellulitis. 2. First MTP joint effusion with abnormal synovial thickening and enhancement likely indicating septic arthritis changes. 3. Suspected limited area of osteomyelitis involving the medial aspect of the 1st metatarsal head. Marrow changes involving the base of the proximal phalanx and sesamoid bones are favored to be reactive. - Report called on 08/21/18 at 10:12 am. Dictated by Abel Ordaz MD @ 08/21/2018 10:13:46 AM Dictated by: Abel Ordaz MD @ 08/21/2018 10:14:14 (Electronically Signed)
[2018-08-21] MEDS: Acetaminophen/oxyCODONE 325-5 MG Tab PO PRN ×2 (15:38→22:49)
[2018-08-21] MEDS ORDERED: JARDIANCE 25 MG PO SCH (16:00)
[2018-08-21] MEDS: Liraglutide (rDNA Origin) 0.6 MG/0.1 ML 3 ML Pen SUBCUT SCH (21:25)
[2018-08-21] MEDS: TRESIBA SUBCUT SCH (21:25)
[2018-08-22] MEDS: Sodium Chloride 0.9% 1,000 ML IV SCH (01:49)
[2018-08-22] MEDS: Piperacillin/Tazobactam/Dext 3.375 GM in Premix Bag 1 BAG IV SCH ×4 (03:54→21:55)
[2018-08-22] MEDS: Acetaminophen/oxyCODONE 325-5 MG Tab PO PRN ×4 (04:13→22:10)
[2018-08-22] MEDS: Vancomycin 2 GM in Sodium Chloride 0.9% 500 ML IV SCH ×3 (05:41→23:09)
[2018-08-22] MEDS: JARDIANCE 25 MG PO SCH (06:05)
[2018-08-22] MEDS: Insulin Lispro 100 Unit/ML 3 ML KwikPen SUBCUT SCH ×4 (08:46→21:52)
[2018-08-22] MEDS: Gabapentin 300 MG Cap PO SCH ×3 (08:55→21:54)
[2018-08-22] MEDS: DULoxetine 30 MG Cap PO SCH (08:56)
[2018-08-22] MEDS: Aspirin 81 MG Tab.EC PO SCH (08:56)
[2018-08-22] MEDS: Lactobacillus Rhamnosus GG (Probiotic) Cap PO SCH ×2 (08:56→21:54)
[2018-08-22] MEDS: Spironolactone 25 MG Tab PO SCH ×2 (08:56→21:54)
[2018-08-22] MEDS: Loperamide 2 MG Cap PO PRN ×2 (14:12→22:10)
--- NOTE | 2018-08-22 14:16 | PCM.PN ---
- General Info Date of Service: 08/22/18 Subjective Update: Ms. Link has been stable since surgery yesterday, afebrile with good vital signs. Pain controlled thus far has been adequate. Wound cultures from the clinic as well as surgery are pending at this time. Functional Status: Reports: Tolerating Diet, Urinating - Review of Systems General: Reports: Weakness. Denies: Fever, Chills Pulmonary: Reports: No Symptoms Cardiovascular: Reports: No Symptoms Gastrointestinal: Reports: No Symptoms - Patient Data Vitals - Most Recent: Last Vital Signs Temp 96.3 F 08/22/18 10:16 Pulse 77 08/22/18 10:16 Resp 18 08/22/18 10:16 BP 116/58 L 08/22/18 10:16 Pulse Ox 92 L 08/22/18 10:16 Weight - Most Recent: 371 lb 6.392 oz I&O - Last 24 Hours: Intake & Output 08/21/18 08/22/18 08/22/18 22:59 06:59 14:59 Intake Total 710 2255 480 Output Total 300 Balance 410 2255 480 Lab Results Last 24 Hours: Laboratory Results - last 24 hr 08/22/18 08/22/18 Range/Units 06:17 06:17 WBC 8.6 (4.5-11.0) K/uL RBC 4.07 (3.30-5.50) M/uL Hgb 11.8 L (12.0-15.0) g/dL Hct 36.7 (36.0-48.0) % MCV 90 (80-98) fL MCH 29 (27-31) pg MCHC 32 (32-36) % Plt Count 188 (150-400) K/uL Neut % (Auto) 68 H (36-66) % Lymph % (Auto) 22 L (24-44) % [place] % (Auto) 7 H (2-6) % Eos % (Auto) 2 (2-4) % Baso % (Auto) 1 (0-1) % Sodium 140 (140-148) mmol/L Potassium 3.9 (3.6-5.2) mmol/L Chloride 105 (100-108) mmol/L Carbon Dioxide 27 (21-32) mmol/L Anion Gap 8.4 (5.0-14.0) mmol/L BUN 15 (7-18) mg/dL Creatinine 0.8 (0.6-1.0) mg/dL Est Cr Clr Drug Dosing 82.09 mL/min Estimated GFR (MDRD) > 60 (>60) Glucose 129 H (74-106) mg/dL Calcium 8.4 L (8.5-10.1) mg/dL Andres Results Last 24 Hours: Microbiology 08/21/18 12:51 Gram Stain - Final Foot, Left Wound Culture - Preliminary 08/21/18 12:50 Gram Stain - Final Foot, Left Wound Culture - Preliminary Med Orders - Current: Current Medications Acetaminophen (Tylenol) 650 mg PO Q4H PRN PRN Reason: Pain (Mild 1-3)/fever Acetaminophen/Codeine Phosphate (Tylenol With Codeine No.3 300mg/30mg) 1 - 2 tab PO Q4H PRN PRN Reason: Pain Last Admin: 08/22/18 11:29 Dose: 1 tab Aspirin (Halfprin) 81 mg PO DAILY [facility] Last Admin: 08/22/18 08:56 Dose: 81 mg Dextrose (Glutose 15) 15 gm PO ONETIME PRN PRN Reason: Hypoglycemia Dextrose/Water (Dextrose 50% In Water) 50 ml IV ONETIME PRN PRN Reason: Hypoglycemia Duloxetine HCl (Cymbalta) 60 mg PO DAILY [facility] Last Admin: 08/22/18 08:56 Dose: 60 mg Gabapentin (Neurontin) 1,800 mg PO TID [facility] Last Admin: 08/22/18 08:55 Dose: 1,800 mg Piperacillin/Tazobactam/ (Dextrose 3.375 gm/ Premix) 50 mls @ 100 mls/hr IV Q6H [facility] Last Admin: 08/22/18 11:23 Dose: 100 mls/hr Vancomycin HCl 2 gm/ Sodium (Chloride) 500 mls @ 250 mls/hr IV Q12H [facility] Last Admin: 08/22/18 05:41 Dose: 250 mls/hr Insulin Human Lispro (Humalog) 0 unit SUBCUT QIDACANDBED [facility]; Protocol Last Admin: 08/22/18 11:37 Dose: 2 units Lactobacillus Rhamnosus (Culturelle) 1 cap PO BID [facility] Last Admin: 08/22/18 08:56 Dose: 1 cap Liraglutide (Victoza) 1.8 mg SUBCUT BEDTIME [facility] Last Admin: 08/21/18 21:25 Dose: 1.8 mg Loperamide HCl (Imodium) 2 mg PO Q4H PRN PRN Reason: Diarrhea Last Admin: 08/22/18 14:12 Dose: 2 mg Ondansetron HCl (Zofran) 4 mg IV Q4H PRN PRN Reason: Nausea/Vomiting Oxycodone/Acetaminophen (Percocet 325-5 Mg) 1 - 2 tab PO Q4H PRN PRN Reason: Pain Last Admin: 08/22/18 09:12 Dose: 1 tab Tresiba Ptom 0 each SUBCUT BEDTIME [facility] Last Admin: 08/21/18 21:25 Dose: 1 each Jardiance 25mg (Ptom) 0 each PO DAILY@0600 [facility] Last Admin: 08/22/18 06:05 Dose: Not Given Polyethylene Glycol (Miralax) 17 gm PO DAILY PRN PRN Reason: Constipation Sodium Chloride (Saline Flush) 10 ml FLUSH ASDIRECTED PRN PRN Reason: Keep Vein Open Spironolactone (Aldactone) 50 mg PO BID [facility] Last Admin: 08/22/18 08:56 Dose: 50 mg Discontinued Medications Bupivacaine HCl (Marcaine 0.5%) Confirm Administered Dose 50 ml .ROUTE .STK-MED ONE Stop: 08/21/18 12:31 Last Admin: 08/21/18 13:44 Dose: 20 ml Fentanyl (Sublimaze) Confirm Administered Dose 100 mcg .ROUTE .STK-MED ONE Stop: 08/21/18 11:43 Gabapentin (Neurontin) 1,200 mg PO TID [facility] Last Admin: 08/21/18 11:13 Dose: Not Given Gadoteridol (Prohance) 20 ml IV . DIRECTED [facility] Stop: 08/21/18 10:00 Last Admin: 08/21/18 09:10 Dose: 20 ml Heparin Sodium (Porcine) (Heparin Sodium) 5,000 units SUBCUT Q8H [facility] Stop: 08/21/18 02:01 Last Admin: 08/21/18 01:59 Dose: 5,000 units Vancomycin HCl 2.5 gm/ Sodium (Chloride) 500 mls @ 250 mls/hr IV ONETIME ONE Stop: 08/20/18 18:59 Last Admin: 08/20/18 17:15 Dose: 250 mls/hr Sodium Chloride (Normal Saline) 1,000 mls @ 125 mls/hr IV ASDIRECTED [facility] Last Admin: 08/22/18 01:49 Dose: 125 mls/hr Lactated Ringer's (Ringers, Lactated) Confirm Administered Dose 1,000 mls @ as directed .ROUTE .STK-MED ONE Stop: 08/21/18 12:59 Midazolam HCl (Versed 1 Mg/Ml) Confirm Administered Dose 2 mg .ROUTE .STK-MED ONE Stop: 08/21/18 11:43 (Insulin Degludec [ Tresiba Flextouch U- 200]Pom 64 units SUBCUT BEDTIME [facility] Last Admin: 08/20/18 22:00 Dose: Not Given Empagliflozin ( Jardiance) 10 Mg Pom 0 mg PO DAILY [facility] Last Admin: 08/21/18 11:13 Dose: Not Given Propofol (Diprivan 20 Ml) Confirm Administered Dose 200 mg .ROUTE .STK-MED ONE Stop: 08/21/18 11:43 Propofol (Diprivan 20 Ml) Confirm Administered Dose 200 mg .ROUTE .STK-MED ONE Stop: 08/21/18 12:36 Propofol (Diprivan 20 Ml) Confirm Administered Dose 200 mg .ROUTE .STK-MED ONE Stop: 08/21/18 12:43 - Exam Quality Assessment: DVT Prophylaxis General: Alert, Oriented, Cooperative, Mild Distress Lungs: Clear to Auscultation, Normal Respiratory Effort Cardiovascular: Regular Rate, Regular Rhythm, No Murmurs GI/Abdominal Exam: Soft, Non-Tender, No Organomegaly, No Distention Extremities: Non-Tender, No Pedal Edema - Problem List Review Problem List Initiated/Reviewed/Updated: Yes - My Orders Last 24 Hours: My Active Orders 08/21/18 14:00 Gabapentin [Neurontin] 1,800 mg PO TID 08/21/18 21:00 Patient's Own Medication [Ptom] 0 each SUBCUT BEDTIME 08/21/18 Dinner Consistent Carbohydrate Diet [DIET] 08/22/18 06:00 Patient's Own Medication [Ptom] 0 each PO DAILY@0600 08/22/18 14:00 Loperamide [Imodium] 2 mg PO Q4H PRN Convert IV to Saline Lock [OM.PC] Routine 08/22/18 16:30 GLUCOSE POC LAB TO COLLECT [POC] QIDACANDBED 08/22/18 21:00 GLUCOSE POC LAB TO COLLECT [POC] QIDACANDBED 08/23/18 04:30 VANCOMYCIN TROUGH [CHEM] Routine 08/23/18 05:00 BASIC METABOLIC PANEL,BMP [CHEM] Timed 08/23/18 07:30 GLUCOSE POC LAB TO COLLECT [POC] QIDACANDBED 08/23/18 11:30 GLUCOSE POC LAB TO COLLECT [POC] QIDACANDBED 08/23/18 16:30 GLUCOSE POC LAB TO COLLECT [POC] QIDACANDBED 08/23/18 21:00 GLUCOSE POC LAB TO COLLECT [POC] QIDACANDBED 08/24/18 07:30 GLUCOSE POC LAB TO COLLECT [POC] QIDACANDBED 08/24/18 11:30 GLUCOSE POC LAB TO COLLECT [POC] QIDACANDBED 08/24/18 16:30 GLUCOSE POC LAB TO COLLECT [POC] QIDACANDBED 08/24/18 21:00 GLUCOSE POC LAB TO COLLECT [POC] QIDACANDBED 08/25/18 07:30 GLUCOSE POC LAB TO COLLECT [POC] QIDACANDBED 08/25/18 11:30 GLUCOSE POC LAB TO COLLECT [POC] QIDACANDBED - Plan Plan:: ASSESSMENT AND PLAN DIABETIC ULCER LEFT FOOT-ulcer present for 6-8 weeks with new infection in the past few days. MRI shows evidence of underlying septic arthritis as well as osteomyelitis. Status post surgery yesterday for resection of the left first toe and portion of the metatarsal -Wound culture pending -Broad-spectrum IV antibiotic therapy pending culture results; vancomycin and Zosyn -Dr. Solorio to see for surgical follow-up TYPE 2 DIABETES MELLITUS-glucose control fairly stable with current management -Continue outpatient medications including long-acting insulin -4 times a day glucometers -Moderate dose sliding scale Humulin CHRONIC LOW BACK PAIN -Continue outpatient pain medication regimen MAINTENANCE ISSUES -DVT prophylaxis; begin Lovenox 40 mg subcutaneous daily -GI prophylaxis; not indicated -Gama catheter; not indicated -Nutrition; consistent carb diet, nothing by mouth after midnight -Nicotine dependence; not required CODE STATUS-FULL CODE ADMISSION STATUS-patient will be admitted to inpatient status, expect at least a 2 night hospital stay for evaluation and management of problems as outlined above. At the time of this admission I do not reasonably expected evaluation and management of this problem will require more than a 96 hour hospital stay. DISPOSITION-anticipate discharge to home after the hospital stay. PRIMARY CARE PROVIDER-Jordan Zuniga
[2018-08-22] MEDS: Enoxaparin 40 MG/0.4 ML Syringe SUBCUT SCH (17:13)
[2018-08-22] MEDS: Liraglutide (rDNA Origin) 0.6 MG/0.1 ML 3 ML Pen SUBCUT SCH (21:55)
[2018-08-22] MEDS: TRESIBA SUBCUT SCH (21:56)
[2018-08-23] MEDS: Piperacillin/Tazobactam/Dext 3.375 GM in Premix Bag 1 BAG IV SCH ×4 (05:21→21:23)
[2018-08-23] MEDS: JARDIANCE 25 MG PO SCH ×3 (06:26→08:57)
[2018-08-23] MEDS: Acetaminophen/oxyCODONE 325-5 MG Tab PO PRN ×3 (07:20→16:51)
[2018-08-23] MEDS: Insulin Lispro 100 Unit/ML 3 ML KwikPen SUBCUT SCH ×4 (07:23→21:32)
[2018-08-23] MEDS: Spironolactone 25 MG Tab PO SCH ×2 (08:59→21:22)
[2018-08-23] MEDS: DULoxetine 30 MG Cap PO SCH (08:59)
[2018-08-23] MEDS: Lactobacillus Rhamnosus GG (Probiotic) Cap PO SCH ×2 (08:59→21:22)
[2018-08-23] MEDS: Aspirin 81 MG Tab.EC PO SCH (08:59)
[2018-08-23] MEDS: Gabapentin 300 MG Cap PO SCH ×3 (08:59→21:22)
--- NOTE | 2018-08-23 12:44 | PCM.PN ---
- General Info Date of Service: 08/23/18 Subjective Update: Ms. Link has been stable since yesterday, afebrile with good vital signs. Final ID and sensitivities on wound cultures pending Functional Status: Reports: Tolerating Diet, Urinating. Denies: Ambulating - Review of Systems General: Reports: Weakness. Denies: Fever, Chills Pulmonary: Reports: No Symptoms Cardiovascular: Reports: No Symptoms Gastrointestinal: Reports: No Symptoms - Patient Data Vitals - Most Recent: Last Vital Signs Temp 96.9 F 08/23/18 11:31 Pulse 65 08/23/18 11:31 Resp 12 08/23/18 11:31 BP 109/48 L 08/23/18 11:31 Pulse Ox 90 L 08/23/18 11:31 Weight - Most Recent: 380 lb 8 oz I&O - Last 24 Hours: Intake & Output 08/22/18 08/23/18 08/23/18 22:59 06:59 14:59 Intake Total 500 1190 50 Balance 500 1190 50 Lab Results Last 24 Hours: Laboratory Results - last 24 hr 08/22/18 08/23/18 Range/Units 16:00 05:00 Sodium 142 (140-148) mmol/L Potassium 3.6 (3.6-5.2) mmol/L Chloride 106 (100-108) mmol/L Carbon Dioxide 28 (21-32) mmol/L Anion Gap 8.3 (5.0-14.0) mmol/L BUN 10 (7-18) mg/dL Creatinine 0.8 (0.6-1.0) mg/dL Est Cr Clr Drug Dosing 82.09 mL/min Estimated GFR (MDRD) > 60 (>60) Glucose 152 H (74-106) mg/dL Calcium 8.7 (8.5-10.1) mg/dL Vancomycin Trough 20.7 H (10.0-20.0) ug/mL Andres Results Last 24 Hours: Microbiology 08/21/18 12:51 Gram Stain - Final Foot, Left Wound Culture - Preliminary Anaerobic Culture - Preliminary 08/21/18 12:50 Gram Stain - Final Foot, Left Wound Culture - Preliminary Anaerobic Culture - Preliminary Med Orders - Current: Current Medications Acetaminophen (Tylenol) 650 mg PO Q4H PRN PRN Reason: Pain (Mild 1-3)/fever Acetaminophen/Codeine Phosphate (Tylenol With Codeine No.3 300mg/30mg) 1 - 2 tab PO Q4H PRN PRN Reason: Pain Last Admin: 08/22/18 11:29 Dose: 1 tab Aspirin (Halfprin) 81 mg PO DAILY [facility] Last Admin: 08/23/18 08:59 Dose: 81 mg Dextrose (Glutose 15) 15 gm PO ONETIME PRN PRN Reason: Hypoglycemia Dextrose/Water (Dextrose 50% In Water) 50 ml IV ONETIME PRN PRN Reason: Hypoglycemia Duloxetine HCl (Cymbalta) 60 mg PO DAILY [facility] Last Admin: 08/23/18 08:59 Dose: 60 mg Enoxaparin Sodium (Lovenox) 40 mg SUBCUT Q24H [facility] Last Admin: 08/22/18 17:13 Dose: 40 mg Gabapentin (Neurontin) 1,800 mg PO TID [facility] Last Admin: 08/23/18 08:59 Dose: 1,800 mg Piperacillin/Tazobactam/ (Dextrose 3.375 gm/ Premix) 50 mls @ 100 mls/hr IV Q6H [facility] Last Admin: 08/23/18 10:36 Dose: 100 mls/hr Vancomycin HCl 2 gm/ Sodium (Chloride) 500 mls @ 250 mls/hr IV Q18H [facility] Last Admin: 08/22/18 23:09 Dose: 250 mls/hr Insulin Human Lispro (Humalog) 0 unit SUBCUT QIDACANDBED [facility]; Protocol Last Admin: 08/23/18 07:23 Dose: Not Given Lactobacillus Rhamnosus (Culturelle) 1 cap PO BID [facility] Last Admin: 08/23/18 08:59 Dose: 1 cap Liraglutide (Victoza) 1.8 mg SUBCUT BEDTIME [facility] Last Admin: 08/22/18 21:55 Dose: 1.8 mg Loperamide HCl (Imodium) 2 mg PO Q4H PRN PRN Reason: Diarrhea Last Admin: 08/22/18 22:10 Dose: 2 mg Ondansetron HCl (Zofran) 4 mg IV Q4H PRN PRN Reason: Nausea/Vomiting Oxycodone/Acetaminophen (Percocet 325-5 Mg) 1 - 2 tab PO Q4H PRN PRN Reason: Pain Last Admin: 08/23/18 11:24 Dose: 2 tab Tresiba Ptom 0 each SUBCUT BEDTIME [facility] Last Admin: 08/22/18 21:56 Dose: 1 each Jardiance 25mg (Ptom) 0 each PO DAILY@0800 [facility] Last Admin: 08/23/18 08:57 Dose: Not Given Polyethylene Glycol (Miralax) 17 gm PO DAILY PRN PRN Reason: Constipation Sodium Chloride (Saline Flush) 10 ml FLUSH ASDIRECTED PRN PRN Reason: Keep Vein Open Spironolactone (Aldactone) 50 mg PO BID [facility] Last Admin: 08/23/18 08:59 Dose: 50 mg Discontinued Medications Bupivacaine HCl (Marcaine 0.5%) Confirm Administered Dose 50 ml .ROUTE .STK-MED ONE Stop: 08/21/18 12:31 Last Admin: 08/21/18 13:44 Dose: 20 ml Fentanyl (Sublimaze) Confirm Administered Dose 100 mcg .ROUTE .STK-MED ONE Stop: 08/21/18 11:43 Gabapentin (Neurontin) 1,200 mg PO TID [facility] Last Admin: 08/21/18 11:13 Dose: Not Given Gadoteridol (Prohance) 20 ml IV . DIRECTED [facility] Stop: 08/21/18 10:00 Last Admin: 08/21/18 09:10 Dose: 20 ml Heparin Sodium (Porcine) (Heparin Sodium) 5,000 units SUBCUT Q8H [facility] Stop: 08/21/18 02:01 Last Admin: 08/21/18 01:59 Dose: 5,000 units Vancomycin HCl 2.5 gm/ Sodium (Chloride) 500 mls @ 250 mls/hr IV ONETIME ONE Stop: 08/20/18 18:59 Last Admin: 08/20/18 17:15 Dose: 250 mls/hr Sodium Chloride (Normal Saline) 1,000 mls @ 125 mls/hr IV ASDIRECTED [facility] Last Admin: 08/22/18 01:49 Dose: 125 mls/hr Vancomycin HCl 2 gm/ Sodium (Chloride) 500 mls @ 250 mls/hr IV Q12H [facility] Last Admin: 08/22/18 17:20 Dose: Not Given Lactated Ringer's (Ringers, Lactated) Confirm Administered Dose 1,000 mls @ as directed .ROUTE .STK-MED ONE Stop: 08/21/18 12:59 Midazolam HCl (Versed 1 Mg/Ml) Confirm Administered Dose 2 mg .ROUTE .STK-MED ONE Stop: 08/21/18 11:43 (Insulin Degludec [ Tresiba Flextouch U- 200]Pom 64 units SUBCUT BEDTIME [facility] Last Admin: 08/20/18 22:00 Dose: Not Given Empagliflozin ( Jardiance) 10 Mg Pom 0 mg PO DAILY [facility] Last Admin: 08/21/18 11:13 Dose: Not Given Jardiance 25mg (Ptom) 0 each PO DAILY@0600 [facility] Last Admin: 08/23/18 07:24 Dose: 1 each Propofol (Diprivan 20 Ml) Confirm Administered Dose 200 mg .ROUTE .STK-MED ONE Stop: 08/21/18 11:43 Propofol (Diprivan 20 Ml) Confirm Administered Dose 200 mg .ROUTE .STK-MED ONE Stop: 08/21/18 12:36 Propofol (Diprivan 20 Ml) Confirm Administered Dose 200 mg .ROUTE .STK-MED ONE Stop: 08/21/18 12:43 - Exam Quality Assessment: DVT Prophylaxis General: Alert, Oriented, Cooperative, Mild Distress Lungs: Clear to Auscultation, Normal Respiratory Effort Cardiovascular: Regular Rate, Regular Rhythm, No Murmurs GI/Abdominal Exam: Soft, Non-Tender, No Organomegaly, No Distention Extremities: Other (Surgical dressing remains in place) - Problem List Review Problem List Initiated/Reviewed/Updated: Yes - My Orders Last 24 Hours: My Active Orders 08/22/18 14:00 Loperamide [Imodium] 2 mg PO Q4H PRN Convert IV to Saline Lock [OM.PC] Routine 08/22/18 16:00 Enoxaparin [Lovenox] 40 mg SUBCUT Q24H 08/23/18 08:00 Patient's Own Medication [Ptom] 0 each PO DAILY@0800 08/23/18 16:30 GLUCOSE POC LAB TO COLLECT [POC] QIDACANDBED 08/23/18 21:00 GLUCOSE POC LAB TO COLLECT [POC] QIDACANDBED 08/24/18 05:00 BASIC METABOLIC PANEL,BMP [CHEM] Timed 08/24/18 07:30 GLUCOSE POC LAB TO COLLECT [POC] QIDACANDBED 08/24/18 11:30 GLUCOSE POC LAB TO COLLECT [POC] QIDACANDBED 08/24/18 16:30 GLUCOSE POC LAB TO COLLECT [POC] QIDACANDBED 08/24/18 21:00 GLUCOSE POC LAB TO COLLECT [POC] QIDACANDBED 08/25/18 07:30 GLUCOSE POC LAB TO COLLECT [POC] QIDACANDBED 08/25/18 11:30 GLUCOSE POC LAB TO COLLECT [POC] QIDACANDBED - Plan Plan:: ASSESSMENT AND PLAN DIABETIC ULCER LEFT FOOT-ulcer present for 6-8 weeks with new infection in the past few days. MRI shows evidence of underlying septic arthritis as well as osteomyelitis. Status post surgery 2 days ago for resection of the left first toe and portion of the metatarsal -Wound culture pending -Broad-spectrum IV antibiotic therapy pending culture results; vancomycin and Zosyn -Dr. Solorio to see for surgical follow-up TYPE 2 DIABETES MELLITUS-glucose control fairly stable with current management -Continue outpatient medications including long-acting insulin -4 times a day glucometers -Moderate dose sliding scale Humulin CHRONIC LOW BACK PAIN -Continue outpatient pain medication regimen MAINTENANCE ISSUES -DVT prophylaxis; begin Lovenox 40 mg subcutaneous daily -GI prophylaxis; not indicated -Gama catheter; not indicated -Nutrition; consistent carb diet, nothing by mouth after midnight -Nicotine dependence; not required CODE STATUS-FULL CODE ADMISSION STATUS-patient will be admitted to inpatient status, expect at least a 2 night hospital stay for evaluation and management of problems as outlined above. At the time of this admission I do not reasonably expected evaluation and management of this problem will require more than a 96 hour hospital stay. DISPOSITION-anticipate discharge to home after the hospital stay. PRIMARY CARE PROVIDER-Jordan Zuniga
[2018-08-23] MEDS: Enoxaparin 40 MG/0.4 ML Syringe SUBCUT SCH (16:34)
[2018-08-23] MEDS: Vancomycin 2 GM in Sodium Chloride 0.9% 500 ML IV SCH (17:28)
[2018-08-23] MEDS: TRESIBA SUBCUT SCH (21:24)
[2018-08-23] MEDS: Liraglutide (rDNA Origin) 0.6 MG/0.1 ML 3 ML Pen SUBCUT SCH (21:32)
[2018-08-24] MEDS: Piperacillin/Tazobactam/Dext 3.375 GM in Premix Bag 1 BAG IV SCH ×3 (04:49→17:05)
--- NOTE | 2018-08-24 08:59 | PN ---
DATE OF SERVICE: 08/24/2018 SUBJECTIVE: The patient is a 58-year-old female, seen at bedside. The patient is 4 days status post partial first ray amputation on the left foot. The patient denies nausea, vomiting, fever, chills, chest pain, calf pain, or difficulty breathing. OBJECTIVE: GENERAL: The patient was alert and oriented x3, in no acute distress. VITAL SINGS: Per EMR. DERMATOLOGICAL: Examination revealed that the incision was clean. On the medial aspect of the left foot, there was some maceration and small amount of mainor-marginal erythema. Sutures were intact. There was a small amount of gapping in the middle portion of the incision, but no purulence. No malodor. No signs of infection. The erythema also resolved with elevation of the left foot. LABORATORY DATA: White blood cell count taken on the was 8.6, the final culture results came back for the anaerobic cultures and showed gram-positive rods and also strep group B and strep viridans and anaerobic cultures have not yet come back. ASSESSMENT: 1. Diabetes mellitus. 2. Diabetic polyneuropathy. 3. The patient is 4 days status post partial first ray amputation, left foot. PLAN: The patient was examined and evaluated. The patient was told that we can discharge her to the transitional care unit for at least 2 weeks to help her remain nonweightbearing, have daily dressing changes and also we told her having nursing care, occupational therapy and physical therapy would help train her to stay off the foot better. The patient was agreeable to this. We discussed clindamycin for coverage for the next [address] Thurman, who agreed with this treatment and the patient to return to clinic with Dr. Garza in 1-week at which time, she will be re-evaluated and it will be next Monday. The patient was agreeable to this. The left foot was dressed with dry sterile dressing consisting of 4x4s, Kerlix, and Coban. We did not use the Telfa because it was holding in too much moisture and macerating the edges of the wound. The patient to return to clinic on Monday. Podiatry to follow. Suresh Garza DPM /[id number]
[2018-08-24] MEDS: Insulin Lispro 100 Unit/ML 3 ML KwikPen SUBCUT SCH ×4 (09:09→21:30)
[2018-08-24] MEDS: Acetaminophen/oxyCODONE 325-5 MG Tab PO PRN ×3 (09:10→21:30)
[2018-08-24] MEDS: Lactobacillus Rhamnosus GG (Probiotic) Cap PO SCH ×2 (09:11→21:31)
[2018-08-24] MEDS: DULoxetine 30 MG Cap PO SCH (09:12)
[2018-08-24] MEDS: Spironolactone 25 MG Tab PO SCH ×2 (09:12→21:31)
[2018-08-24] MEDS: Aspirin 81 MG Tab.EC PO SCH (09:14)
[2018-08-24] MEDS: JARDIANCE 25 MG PO SCH (09:16)
[2018-08-24] MEDS: Gabapentin 300 MG Cap PO SCH ×3 (09:17→21:30)
[2018-08-24] MEDS: Vancomycin 2 GM in Sodium Chloride 0.9% 500 ML IV SCH (12:24)
[2018-08-24] MEDS: Enoxaparin 40 MG/0.4 ML Syringe SUBCUT SCH (17:05)
[2018-08-24] MEDS: Clindamycin HCl 150 MG Cap PO SCH ×2 (18:10→22:59)
[2018-08-24] MEDS: cefTRIAXone 1 GM in Sodium Chloride 0.9% 50 ML IV SCH (18:11)
--- NOTE | 2018-08-24 20:20 | PCM.PN ---
- General Info Date of Service: 08/24/18 Subjective Update: Ms. Link has been stable since yesterday, good vital signs and afebrile. Plan had been for potential discharge today, no senior living beds available. Functional Status: Reports: Tolerating Diet, Urinating. Denies: Ambulating - Review of Systems General: Reports: Weakness. Denies: Fever, Chills Pulmonary: Reports: No Symptoms Cardiovascular: Reports: No Symptoms Gastrointestinal: Reports: No Symptoms - Patient Data Vitals - Most Recent: Last Vital Signs Temp 95 F L 08/24/18 15:00 Pulse 68 08/24/18 15:00 Resp 18 08/24/18 15:00 BP 115/67 08/24/18 15:00 Pulse Ox 92 L 08/24/18 15:00 Weight - Most Recent: 378 lb 4.8 oz I&O - Last 24 Hours: Intake & Output 08/24/18 08/24/18 08/24/18 06:59 14:59 22:59 Intake Total 100 550 455 Balance 100 550 455 Lab Results Last 24 Hours: Laboratory Results - last 24 hr 08/24/18 Range/Units 05:00 Sodium 141 (140-148) mmol/L Potassium 3.7 (3.6-5.2) mmol/L Chloride 105 (100-108) mmol/L Carbon Dioxide 28 (21-32) mmol/L Anion Gap 7.7 (5.0-14.0) mmol/L BUN 10 (7-18) mg/dL Creatinine 0.9 (0.6-1.0) mg/dL Est Cr Clr Drug Dosing 72.97 mL/min Estimated GFR (MDRD) > 60 (>60) Glucose 151 H (74-106) mg/dL Calcium 9.1 (8.5-10.1) mg/dL Andres Results Last 24 Hours: Microbiology 08/21/18 12:50 Gram Stain - Final Foot, Left Wound Culture - Preliminary Beta Hemolytic Strepto Grp B Gram Positive Rods Anaerobic Culture - Preliminary 08/21/18 12:51 Gram Stain - Final Foot, Left Wound Culture - Preliminary Beta Hemolytic Strepto Grp B Gram Positive Rods Viridans Streptococcus Anaerobic Culture - Preliminary Med Orders - Current: Current Medications Acetaminophen (Tylenol) 650 mg PO Q4H PRN PRN Reason: Pain (Mild 1-3)/fever Acetaminophen/Codeine Phosphate (Tylenol With Codeine No.3 300mg/30mg) 1 - 2 tab PO Q4H PRN PRN Reason: Pain Last Admin: 08/22/18 11:29 Dose: 1 tab Aspirin (Halfprin) 81 mg PO DAILY [facility] Last Admin: 08/24/18 09:14 Dose: 81 mg Clindamycin HCl (Cleocin) 300 mg PO Q6H [facility] Last Admin: 08/24/18 18:10 Dose: 300 mg Dextrose (Glutose 15) 15 gm PO ONETIME PRN PRN Reason: Hypoglycemia Dextrose/Water (Dextrose 50% In Water) 50 ml IV ONETIME PRN PRN Reason: Hypoglycemia Duloxetine HCl (Cymbalta) 60 mg PO DAILY [facility] Last Admin: 08/24/18 09:12 Dose: 60 mg Enoxaparin Sodium (Lovenox) 40 mg SUBCUT Q24H [facility] Last Admin: 08/24/18 17:05 Dose: 40 mg Gabapentin (Neurontin) 1,800 mg PO TID [facility] Last Admin: 08/24/18 13:32 Dose: 1,800 mg Ceftriaxone Sodium 1 gm/ (Sodium Chloride) 50 mls @ 100 mls/hr IV Q24H [facility] Last Admin: 08/24/18 18:11 Dose: 100 mls/hr Insulin Human Lispro (Humalog) 0 unit SUBCUT QIDACANDBED [facility]; Protocol Last Admin: 08/24/18 18:15 Dose: Not Given Lactobacillus Rhamnosus (Culturelle) 1 cap PO BID [facility] Last Admin: 08/24/18 09:11 Dose: 1 cap Liraglutide (Victoza) 1.8 mg SUBCUT BEDTIME [facility] Last Admin: 08/23/18 21:32 Dose: 1.8 mg Loperamide HCl (Imodium) 2 mg PO Q4H PRN PRN Reason: Diarrhea Last Admin: 08/22/18 22:10 Dose: 2 mg Ondansetron HCl (Zofran) 4 mg IV Q4H PRN PRN Reason: Nausea/Vomiting Oxycodone/Acetaminophen (Percocet 325-5 Mg) 1 - 2 tab PO Q4H PRN PRN Reason: Pain Last Admin: 08/24/18 17:22 Dose: 2 tab Tresiba Ptom 0 each SUBCUT BEDTIME [facility] Last Admin: 08/23/18 21:24 Dose: 1 each Jardiance 25mg (Ptom) 0 each PO DAILY@0800 [facility] Last Admin: 08/24/18 09:16 Dose: 25 each Polyethylene Glycol (Miralax) 17 gm PO DAILY PRN PRN Reason: Constipation Sodium Chloride (Saline Flush) 10 ml FLUSH ASDIRECTED PRN PRN Reason: Keep Vein Open Spironolactone (Aldactone) 50 mg PO BID [facility] Last Admin: 08/24/18 09:12 Dose: 50 mg Discontinued Medications Bupivacaine HCl (Marcaine 0.5%) Confirm Administered Dose 50 ml .ROUTE .STK-MED ONE Stop: 08/21/18 12:31 Last Admin: 08/21/18 13:44 Dose: 20 ml Fentanyl (Sublimaze) Confirm Administered Dose 100 mcg .ROUTE .STK-MED [facility] Stop: 08/21/18 11:43 Gabapentin (Neurontin) 1,200 mg PO TID [facility] Last Admin: 08/21/18 11:13 Dose: Not Given Gadoteridol (Prohance) 20 ml IV . DIRECTED [facility] Stop: 08/21/18 10:00 Last Admin: 08/21/18 09:10 Dose: 20 ml Heparin Sodium (Porcine) (Heparin Sodium) 5,000 units SUBCUT Q8H [facility] Stop: 08/21/18 02:01 Last Admin: 08/21/18 01:59 Dose: 5,000 units Piperacillin/Tazobactam/ (Dextrose 3.375 gm/ Premix) 50 mls @ 100 mls/hr IV Q6H [facility] Last Admin: 08/24/18 17:05 Dose: 100 mls/hr Vancomycin HCl 2.5 gm/ Sodium (Chloride) 500 mls @ 250 mls/hr IV ONETIME ONE Stop: 08/20/18 18:59 Last Admin: 08/20/18 17:15 Dose: 250 mls/hr Sodium Chloride (Normal Saline) 1,000 mls @ 125 mls/hr IV ASDIRECTED [facility] Last Admin: 08/22/18 01:49 Dose: 125 mls/hr Vancomycin HCl 2 gm/ Sodium (Chloride) 500 mls @ 250 mls/hr IV Q12H [facility] Last Admin: 08/22/18 17:20 Dose: Not Given Lactated Ringer's (Ringers, Lactated) Confirm Administered Dose 1,000 mls @ as directed .ROUTE .STK-MED ONE Stop: 08/21/18 12:59 Vancomycin HCl 2 gm/ Sodium (Chloride) 500 mls @ 250 mls/hr IV Q18H [facility] Last Admin: 08/24/18 12:24 Dose: 250 mls/hr Midazolam HCl (Versed 1 Mg/Ml) Confirm Administered Dose 2 mg .ROUTE .STK-MED ONE Stop: 08/21/18 11:43 (Insulin Degludec [ Tresiba Flextouch U- 200]Pom 64 units SUBCUT BEDTIME [facility] Last Admin: 08/20/18 22:00 Dose: Not Given Empagliflozin ( Jardiance) 10 Mg Pom 0 mg PO DAILY [facility] Last Admin: 08/21/18 11:13 Dose: Not Given Jardiance 25mg (Ptom) 0 each PO DAILY@0600 [facility] Last Admin: 08/23/18 07:24 Dose: 1 each Propofol (Diprivan 20 Ml) Confirm Administered Dose 200 mg .ROUTE .STK-MED ONE Stop: 08/21/18 11:43 Propofol (Diprivan 20 Ml) Confirm Administered Dose 200 mg .ROUTE .STK-MED ONE Stop: 08/21/18 12:36 Propofol (Diprivan 20 Ml) Confirm Administered Dose 200 mg .ROUTE .STK-MED ONE Stop: 08/21/18 12:43 - Exam Quality Assessment: DVT Prophylaxis General: Alert, Oriented, Cooperative, Mild Distress Lungs: Clear to Auscultation, Normal Respiratory Effort Cardiovascular: Regular Rate, Regular Rhythm, No Murmurs GI/Abdominal Exam: Soft, Non-Tender, No Organomegaly, No Distention Extremities: Other (Surgical dressing in place left foot) - Problem List Review Problem List Initiated/Reviewed/Updated: Yes - My Orders Last 24 Hours: My Active Orders 08/24/18 14:52 Chest 1V Frontal [CR] Routine 08/24/18 15:05 Chest 1V Frontal [CR] Routine 08/24/18 17:30 Clindamycin HCl [Cleocin] 300 mg PO Q6H cefTRIAXone [Rocephin] 1 gm Sodium Chloride 0.9% [Normal Saline] 50 ml IV Q24H 08/24/18 21:00 GLUCOSE POC LAB TO COLLECT [POC] QIDACANDBED 08/25/18 07:30 GLUCOSE POC LAB TO COLLECT [POC] QIDACANDBED 08/25/18 11:30 GLUCOSE POC LAB TO COLLECT [POC] QIDACANDBED - Plan Plan:: ASSESSMENT AND PLAN DIABETIC ULCER LEFT FOOT-ulcer present for 6-8 weeks with new infection in the past few days. MRI shows evidence of underlying septic arthritis as well as osteomyelitis. Status post surgery 3 days ago for resection of the left first toe and portion of the metatarsal. Line had been for discharge to senior living today, unfortunately no beds are actively available. Wound cultures growing strep viridans and group B strep -Discontinue Zosyn and vancomycin -Clindamycin 300 mg by mouth every 6 hours 2 weeks -Ceftriaxone 1 g IV daily -Dr. Solorio/Dr. Garza to see for surgical follow-up TYPE 2 DIABETES MELLITUS-glucose control fairly stable with current management -Continue outpatient medications including long-acting insulin -4 times a day glucometers -Moderate dose sliding scale Humulin CHRONIC LOW BACK PAIN -Continue outpatient pain medication regimen MAINTENANCE ISSUES -DVT prophylaxis; begin Lovenox 40 mg subcutaneous daily -GI prophylaxis; not indicated -Gama catheter; not indicated -Nutrition; consistent carb diet, nothing by mouth after midnight -Nicotine dependence; not required CODE STATUS-FULL CODE ADMISSION STATUS-patient will be admitted to inpatient status, expect at least a 2 night hospital stay for evaluation and management of problems as outlined above. At the time of this admission I do not reasonably expected evaluation and management of this problem will require more than a 96 hour hospital stay. DISPOSITION-anticipate discharge to home after the hospital stay. PRIMARY CARE PROVIDER-Jordan Zuniga
[2018-08-24] MEDS: Loperamide 2 MG Cap PO PRN (21:30)
[2018-08-24] MEDS: Liraglutide (rDNA Origin) 0.6 MG/0.1 ML 3 ML Pen SUBCUT SCH (21:32)
[2018-08-24] MEDS: TRESIBA SUBCUT SCH (21:32)
[2018-08-25] MEDS: Clindamycin HCl 150 MG Cap PO SCH ×4 (05:30→21:22)
[2018-08-25] MEDS: Insulin Lispro 100 Unit/ML 3 ML KwikPen SUBCUT SCH ×4 (07:51→21:10)
[2018-08-25] MEDS: Acetaminophen/oxyCODONE 325-5 MG Tab PO PRN ×3 (08:37→21:31)
[2018-08-25] MEDS: JARDIANCE 25 MG PO SCH (08:38)
[2018-08-25] MEDS: Gabapentin 300 MG Cap PO SCH ×3 (08:39→21:18)
[2018-08-25] MEDS: Aspirin 81 MG Tab.EC PO SCH (08:40)
[2018-08-25] MEDS: Lactobacillus Rhamnosus GG (Probiotic) Cap PO SCH ×2 (08:41→21:17)
[2018-08-25] MEDS: DULoxetine 30 MG Cap PO SCH (08:41)
[2018-08-25] MEDS: Spironolactone 25 MG Tab PO SCH ×2 (08:42→21:16)
--- NOTE | 2018-08-25 13:23 | PCM.PN ---
- General Info Date of Service: 08/25/18 Subjective Update: Ms. Link has been stable since yesterday, good vital signs with no significant temperature elevation. Overall doing well and awaiting safe discharge plan with group home admission. Functional Status: Reports: Pain Controlled, Tolerating Diet, Urinating - Review of Systems General: Denies: Fever, Chills Pulmonary: Reports: No Symptoms Cardiovascular: Reports: No Symptoms Gastrointestinal: Reports: No Symptoms - Patient Data Vitals - Most Recent: Last Vital Signs Temp 96.3 F 08/25/18 11:00 Pulse 77 08/25/18 11:00 Resp 18 08/25/18 11:00 BP 99/58 L 08/25/18 11:00 Pulse Ox 90 L 08/25/18 11:00 Weight - Most Recent: 380 lb 8.285 oz I&O - Last 24 Hours: Intake & Output 08/24/18 08/25/18 08/25/18 22:59 06:59 14:59 Intake Total 455 Balance 455 Andres Results Last 24 Hours: Microbiology 08/21/18 12:51 Gram Stain - Final Foot, Left Wound Culture - Final Beta Hemolytic Strepto Grp B Gram Positive Rods Viridans Streptococcus Anaerobic Culture - Final NO GROWTH AFTER 3 DAYS 08/21/18 12:50 Gram Stain - Final Foot, Left Wound Culture - Final Beta Hemolytic Strepto Grp B Gram Positive Rods Anaerobic Culture - Final NO GROWTH AFTER 3 DAYS Med Orders - Current: Current Medications Acetaminophen (Tylenol) 650 mg PO Q4H PRN PRN Reason: Pain (Mild 1-3)/fever Acetaminophen/Codeine Phosphate (Tylenol With Codeine No.3 300mg/30mg) 1 - 2 tab PO Q4H PRN PRN Reason: Pain Last Admin: 08/22/18 11:29 Dose: 1 tab Aspirin (Halfprin) 81 mg PO DAILY [facility] Last Admin: 08/25/18 08:40 Dose: 81 mg Clindamycin HCl (Cleocin) 300 mg PO Q6H [facility] Last Admin: 08/25/18 11:46 Dose: 300 mg Dextrose (Glutose 15) 15 gm PO ONETIME PRN PRN Reason: Hypoglycemia Dextrose/Water (Dextrose 50% In Water) 50 ml IV ONETIME PRN PRN Reason: Hypoglycemia Duloxetine HCl (Cymbalta) 60 mg PO DAILY [facility] Last Admin: 08/25/18 08:41 Dose: 60 mg Enoxaparin Sodium (Lovenox) 40 mg SUBCUT Q24H [facility] Last Admin: 08/24/18 17:05 Dose: 40 mg Gabapentin (Neurontin) 1,800 mg PO TID [facility] Last Admin: 08/25/18 08:39 Dose: 1,800 mg Ceftriaxone Sodium 1 gm/ (Sodium Chloride) 50 mls @ 100 mls/hr IV Q24H [facility] Last Admin: 08/24/18 18:11 Dose: 100 mls/hr Insulin Human Lispro (Humalog) 0 unit SUBCUT QIDACANDBED [facility]; Protocol Last Admin: 08/25/18 11:47 Dose: 4 units Lactobacillus Rhamnosus (Culturelle) 1 cap PO BID [facility] Last Admin: 08/25/18 08:41 Dose: 1 cap Liraglutide (Victoza) 1.8 mg SUBCUT BEDTIME [facility] Last Admin: 08/24/18 21:32 Dose: 1.8 mg Loperamide HCl (Imodium) 2 mg PO Q4H PRN PRN Reason: Diarrhea Last Admin: 08/24/18 21:30 Dose: 2 mg Ondansetron HCl (Zofran) 4 mg IV Q4H PRN PRN Reason: Nausea/Vomiting Oxycodone/Acetaminophen (Percocet 325-5 Mg) 1 - 2 tab PO Q4H PRN PRN Reason: Pain Last Admin: 08/25/18 08:37 Dose: 1 tab Tresiba Ptom 0 each SUBCUT BEDTIME [facility] Last Admin: 08/24/18 21:32 Dose: 1 each Jardiance 25mg (Ptom) 0 each PO DAILY@0800 [facility] Last Admin: 08/25/18 08:38 Dose: 25 each Polyethylene Glycol (Miralax) 17 gm PO DAILY PRN PRN Reason: Constipation Sodium Chloride (Saline Flush) 10 ml FLUSH ASDIRECTED PRN PRN Reason: Keep Vein Open Spironolactone (Aldactone) 50 mg PO BID [facility] Last Admin: 08/25/18 08:42 Dose: 50 mg Discontinued Medications Bupivacaine HCl (Marcaine 0.5%) Confirm Administered Dose 50 ml .ROUTE .STK-MED ONE Stop: 08/21/18 12:31 Last Admin: 08/21/18 13:44 Dose: 20 ml Clindamycin HCl (Cleocin) 300 mg PO Q6H [facility] Last Admin: 08/25/18 05:30 Dose: 300 mg Fentanyl (Sublimaze) Confirm Administered Dose 100 mcg .ROUTE .STK-MED ONE Stop: 08/21/18 11:43 Gabapentin (Neurontin) 1,200 mg PO TID [facility] Last Admin: 08/21/18 11:13 Dose: Not Given Gadoteridol (Prohance) 20 ml IV . DIRECTED [facility] Stop: 08/21/18 10:00 Last Admin: 08/21/18 09:10 Dose: 20 ml Heparin Sodium (Porcine) (Heparin Sodium) 5,000 units SUBCUT Q8H [facility] Stop: 08/21/18 02:01 Last Admin: 08/21/18 01:59 Dose: 5,000 units Piperacillin/Tazobactam/ (Dextrose 3.375 gm/ Premix) 50 mls @ 100 mls/hr IV Q6H [facility] Last Admin: 08/24/18 17:05 Dose: 100 mls/hr Vancomycin HCl 2.5 gm/ Sodium (Chloride) 500 mls @ 250 mls/hr IV ONETIME ONE Stop: 08/20/18 18:59 Last Admin: 08/20/18 17:15 Dose: 250 mls/hr Sodium Chloride (Normal Saline) 1,000 mls @ 125 mls/hr IV ASDIRECTED [facility] Last Admin: 08/22/18 01:49 Dose: 125 mls/hr Vancomycin HCl 2 gm/ Sodium (Chloride) 500 mls @ 250 mls/hr IV Q12H [facility] Last Admin: 08/22/18 17:20 Dose: Not Given Lactated Ringer's (Ringers, Lactated) Confirm Administered Dose 1,000 mls @ as directed .ROUTE .STK-MED ONE Stop: 08/21/18 12:59 Vancomycin HCl 2 gm/ Sodium (Chloride) 500 mls @ 250 mls/hr IV Q18H [facility] Last Admin: 08/24/18 12:24 Dose: 250 mls/hr Midazolam HCl (Versed 1 Mg/Ml) Confirm Administered Dose 2 mg .ROUTE .STK-MED ONE Stop: 08/21/18 11:43 (Insulin Degludec [ Tresiba Flextouch U- 200]Pom 64 units SUBCUT BEDTIME [facility] Last Admin: 08/20/18 22:00 Dose: Not Given Empagliflozin ( Jardiance) 10 Mg Pom 0 mg PO DAILY [facility] Last Admin: 08/21/18 11:13 Dose: Not Given Jardiance 25mg (Ptom) 0 each PO DAILY@0600 [facility] Last Admin: 08/23/18 07:24 Dose: 1 each Propofol (Diprivan 20 Ml) Confirm Administered Dose 200 mg .ROUTE .STK-MED ONE Stop: 08/21/18 11:43 Propofol (Diprivan 20 Ml) Confirm Administered Dose 200 mg .ROUTE .STK-MED ONE Stop: 08/21/18 12:36 Propofol (Diprivan 20 Ml) Confirm Administered Dose 200 mg .ROUTE .STK-MED ONE Stop: 08/21/18 12:43 - Exam Quality Assessment: Central Line/PICC, DVT Prophylaxis General: Alert, Oriented, Cooperative, No Acute Distress Lungs: Clear to Auscultation, Normal Respiratory Effort Cardiovascular: Regular Rate, Regular Rhythm, No Murmurs GI/Abdominal Exam: Soft, Non-Tender, No Organomegaly, No Distention Extremities: Other (Surgical dressing in place left foot) - Problem List Review Problem List Initiated/Reviewed/Updated: Yes - My Orders Last 24 Hours: My Active Orders 08/24/18 14:52 Chest 1V Frontal [CR] Routine 08/24/18 15:05 Chest 1V Frontal [CR] Routine 08/24/18 17:30 cefTRIAXone [Rocephin] 1 gm Sodium Chloride 0.9% [Normal Saline] 50 ml IV Q24H 08/25/18 07:30 GLUCOSE POC LAB TO COLLECT [POC] QIDACANDBED 08/25/18 10:00 Clindamycin HCl [Cleocin] 300 mg PO Q6H - Plan Plan:: ASSESSMENT AND PLAN DIABETIC ULCER LEFT FOOT-ulcer present for 6-8 weeks with new infection in the past few days. MRI shows evidence of underlying septic arthritis as well as osteomyelitis. Status post surgery 4 days ago for resection of the left first toe and portion of the metatarsal. -Discontinue Zosyn and vancomycin -Clindamycin 300 mg by mouth every 6 hours 2 weeks -Ceftriaxone 1 g IV daily x 2 weeks -Dr. Solorio/Dr. Garza to see for surgical follow-up TYPE 2 DIABETES MELLITUS-glucose control fairly stable with current management -Continue outpatient medications including long-acting insulin -4 times a day glucometers -Moderate dose sliding scale Humulin CHRONIC LOW BACK PAIN -Continue outpatient pain medication regimen MAINTENANCE ISSUES -DVT prophylaxis; begin Lovenox 40 mg subcutaneous daily -GI prophylaxis; not indicated -Gama catheter; not indicated -Nutrition; consistent carb diet, nothing by mouth after midnight -Nicotine dependence; not required CODE STATUS-FULL CODE ADMISSION STATUS-patient will be admitted to inpatient status, expect at least a 2 night hospital stay for evaluation and management of problems as outlined above. At the time of this admission I do not reasonably expected evaluation and management of this problem will require more than a 96 hour hospital stay. DISPOSITION-anticipate discharge to home after the hospital stay. PRIMARY CARE PROVIDER-Jordan Zuniga
[2018-08-25] MEDS: cefTRIAXone 1 GM in Sodium Chloride 0.9% 50 ML IV SCH (17:32)
[2018-08-25] MEDS: Enoxaparin 40 MG/0.4 ML Syringe SUBCUT SCH (17:32)
[2018-08-25] MEDS: TRESIBA SUBCUT SCH (21:19)
[2018-08-25] MEDS: Liraglutide (rDNA Origin) 0.6 MG/0.1 ML 3 ML Pen SUBCUT SCH (21:20)
[2018-08-26] MEDS: Clindamycin HCl 150 MG Cap PO SCH ×4 (03:30→22:00)
[2018-08-26] MEDS: Acetaminophen/oxyCODONE 325-5 MG Tab PO PRN ×3 (03:34→18:06)
[2018-08-26] MEDS: Insulin Lispro 100 Unit/ML 3 ML KwikPen SUBCUT SCH ×4 (08:10→22:08)
[2018-08-26] MEDS: Gabapentin 300 MG Cap PO SCH ×3 (09:15→22:00)
[2018-08-26] MEDS: JARDIANCE 25 MG PO SCH (09:17)
[2018-08-26] MEDS: DULoxetine 30 MG Cap PO SCH (09:18)
[2018-08-26] MEDS: Spironolactone 25 MG Tab PO SCH ×2 (09:19→21:59)
[2018-08-26] MEDS: Aspirin 81 MG Tab.EC PO SCH (09:20)
[2018-08-26] MEDS: Lactobacillus Rhamnosus GG (Probiotic) Cap PO SCH ×2 (09:46→22:00)
[2018-08-26] MEDS: Clotrimazole 10 MG Troche PO SCH ×3 (14:00→22:00)
--- NOTE | 2018-08-26 14:28 | PCM.PN ---
- General Info Date of Service: 08/26/18 Subjective Update: Ms. Link has been stable since yesterday. She does report soreness in her throat and mouth. Vital signs have been stable and she has remained afebrile. Functional Status: Reports: Tolerating Diet, Urinating. Denies: Ambulating - Review of Systems General: Reports: Weakness. Denies: Fever, Chills HEENT: Reports: Sore Throat Pulmonary: Reports: No Symptoms Cardiovascular: Reports: No Symptoms Gastrointestinal: Reports: No Symptoms - Patient Data Vitals - Most Recent: Last Vital Signs Temp 96.3 F 08/26/18 13:00 Pulse 74 08/26/18 13:00 Resp 18 08/26/18 13:00 BP 115/65 08/26/18 13:00 Pulse Ox 92 L 08/26/18 13:00 Weight - Most Recent: 380 lb 8.285 oz I&O - Last 24 Hours: Intake & Output 08/25/18 08/26/18 08/26/18 22:59 06:59 14:59 Intake Total 500 Balance 500 Med Orders - Current: Current Medications Acetaminophen (Tylenol) 650 mg PO Q4H PRN PRN Reason: Pain (Mild 1-3)/fever Acetaminophen/Codeine Phosphate (Tylenol With Codeine No.3 300mg/30mg) 1 - 2 tab PO Q4H PRN PRN Reason: Pain Last Admin: 08/22/18 11:29 Dose: 1 tab Aspirin (Halfprin) 81 mg PO DAILY [facility] Last Admin: 08/26/18 09:20 Dose: 81 mg Clindamycin HCl (Cleocin) 300 mg PO Q6H [facility] Last Admin: 08/26/18 09:47 Dose: 300 mg Clotrimazole (Mycelex) 10 mg PO 5XDAY [facility] Last Admin: 08/26/18 14:00 Dose: 10 mg Dextrose (Glutose 15) 15 gm PO ONETIME PRN PRN Reason: Hypoglycemia Dextrose/Water (Dextrose 50% In Water) 50 ml IV ONETIME PRN PRN Reason: Hypoglycemia Duloxetine HCl (Cymbalta) 60 mg PO DAILY [facility] Last Admin: 08/26/18 09:18 Dose: 60 mg Enoxaparin Sodium (Lovenox) 40 mg SUBCUT Q24H [facility] Last Admin: 08/25/18 17:32 Dose: 40 mg Gabapentin (Neurontin) 1,800 mg PO TID [facility] Last Admin: 08/26/18 14:00 Dose: 1,800 mg Ceftriaxone Sodium 1 gm/ (Sodium Chloride) 50 mls @ 100 mls/hr IV Q24H [facility] Last Admin: 08/25/18 17:32 Dose: 100 mls/hr Insulin Human Lispro (Humalog) 0 unit SUBCUT QIDACANDBED [facility]; Protocol Last Admin: 08/26/18 13:58 Dose: Not Given Lactobacillus Rhamnosus (Culturelle) 1 cap PO BID [facility] Last Admin: 08/26/18 09:46 Dose: 1 cap Liraglutide (Victoza) 1.8 mg SUBCUT BEDTIME [facility] Last Admin: 08/25/18 21:20 Dose: 1.8 mg Loperamide HCl (Imodium) 2 mg PO Q4H PRN PRN Reason: Diarrhea Last Admin: 08/24/18 21:30 Dose: 2 mg Ondansetron HCl (Zofran) 4 mg IV Q4H PRN PRN Reason: Nausea/Vomiting Oxycodone/Acetaminophen (Percocet 325-5 Mg) 1 - 2 tab PO Q4H PRN PRN Reason: Pain Last Admin: 08/26/18 09:14 Dose: 1 tab Tresiba Ptom 0 each SUBCUT BEDTIME [facility] Last Admin: 08/25/18 21:19 Dose: 1 each Jardiance 25mg (Ptom) 0 each PO DAILY@0800 [facility] Last Admin: 08/26/18 09:17 Dose: 25 each Polyethylene Glycol (Miralax) 17 gm PO DAILY PRN PRN Reason: Constipation Sodium Chloride (Saline Flush) 10 ml FLUSH ASDIRECTED PRN PRN Reason: Keep Vein Open Spironolactone (Aldactone) 50 mg PO BID [facility] Last Admin: 08/26/18 09:19 Dose: 50 mg Discontinued Medications Bupivacaine HCl (Marcaine 0.5%) Confirm Administered Dose 50 ml .ROUTE .STK-MED ONE Stop: 08/21/18 12:31 Last Admin: 08/21/18 13:44 Dose: 20 ml Clindamycin HCl (Cleocin) 300 mg PO Q6H [facility] Last Admin: 08/25/18 05:30 Dose: 300 mg Fentanyl (Sublimaze) Confirm Administered Dose 100 mcg .ROUTE .STK-MED ONE Stop: 08/21/18 11:43 Gabapentin (Neurontin) 1,200 mg PO TID [facility] Last Admin: 08/21/18 11:13 Dose: Not Given Gadoteridol (Prohance) 20 ml IV . DIRECTED [facility] Stop: 08/21/18 10:00 Last Admin: 08/21/18 09:10 Dose: 20 ml Heparin Sodium (Porcine) (Heparin Sodium) 5,000 units SUBCUT Q8H [facility] Stop: 08/21/18 02:01 Last Admin: 08/21/18 01:59 Dose: 5,000 units Piperacillin/Tazobactam/ (Dextrose 3.375 gm/ Premix) 50 mls @ 100 mls/hr IV Q6H [facility] Last Admin: 08/24/18 17:05 Dose: 100 mls/hr Vancomycin HCl 2.5 gm/ Sodium (Chloride) 500 mls @ 250 mls/hr IV ONETIME ONE Stop: 08/20/18 18:59 Last Admin: 08/20/18 17:15 Dose: 250 mls/hr Sodium Chloride (Normal Saline) 1,000 mls @ 125 mls/hr IV ASDIRECTED [facility] Last Admin: 08/22/18 01:49 Dose: 125 mls/hr Vancomycin HCl 2 gm/ Sodium (Chloride) 500 mls @ 250 mls/hr IV Q12H [facility] Last Admin: 08/22/18 17:20 Dose: Not Given Lactated Ringer's (Ringers, Lactated) Confirm Administered Dose 1,000 mls @ as directed .ROUTE .[facility]-MED ONE Stop: 08/21/18 12:59 Vancomycin HCl 2 gm/ Sodium (Chloride) 500 mls @ 250 mls/hr IV Q18H [facility] Last Admin: 08/24/18 12:24 Dose: 250 mls/hr Midazolam HCl (Versed 1 Mg/Ml) Confirm Administered Dose 2 mg .ROUTE .K-MED ONE Stop: 08/21/18 11:43 (Insulin Degludec [ Tresiba Flextouch U- 200]Pom 64 units SUBCUT BEDTIME [facility] Last Admin: 08/20/18 22:00 Dose: Not Given Empagliflozin ( Jardiance) 10 Mg Pom 0 mg PO DAILY [facility] Last Admin: 08/21/18 11:13 Dose: Not Given Jardiance 25mg (Ptom) 0 each PO DAILY@0600 [facility] Last Admin: 08/23/18 07:24 Dose: 1 each Propofol (Diprivan 20 Ml) Confirm Administered Dose 200 mg .ROUTE .STK-MED ONE Stop: 08/21/18 11:43 Propofol (Diprivan 20 Ml) Confirm Administered Dose 200 mg .ROUTE .STK-MED ONE Stop: 08/21/18 12:36 Propofol (Diprivan 20 Ml) Confirm Administered Dose 200 mg .ROUTE .STK-MED ONE Stop: 08/21/18 12:43 - Exam Quality Assessment: DVT Prophylaxis General: Alert, Oriented, Cooperative, Mild Distress HEENT: Other (rythema with white patches mouth and pharynx) Lungs: Clear to Auscultation, Normal Respiratory Effort Cardiovascular: Regular Rate, Regular Rhythm, No Murmurs GI/Abdominal Exam: Soft, Non-Tender, No Organomegaly, No Distention - Problem List Review Problem List Initiated/Reviewed/Updated: Yes - My Orders Last 24 Hours: My Active Orders 08/25/18 21:05 GLUCOSE POC LAB TO COLLECT [POC] QIDACANDBED 08/26/18 14:00 Clotrimazole [Mycelex] 10 mg PO 5XDAY 08/26/18 16:30 GLUCOSE POC LAB TO COLLECT [POC] QIDACANDBED 08/26/18 21:00 GLUCOSE POC LAB TO COLLECT [POC] QIDACANDBED 08/27/18 07:30 GLUCOSE POC LAB TO COLLECT [POC] QIDACANDBED 08/27/18 11:30 GLUCOSE POC LAB TO COLLECT [POC] QIDACANDBED 08/27/18 16:30 GLUCOSE POC LAB TO COLLECT [POC] QIDACANDBED 08/27/18 21:00 GLUCOSE POC LAB TO COLLECT [POC] QIDACANDBED 08/28/18 07:30 GLUCOSE POC LAB TO COLLECT [POC] QIDACANDBED 08/28/18 11:30 GLUCOSE POC LAB TO COLLECT [POC] QIDACANDBED 08/28/18 16:30 GLUCOSE POC LAB TO COLLECT [POC] QIDACANDBED 08/28/18 21:00 GLUCOSE POC LAB TO COLLECT [POC] QIDACANDBED - Plan Plan:: ASSESSMENT AND PLAN DIABETIC ULCER LEFT FOOT-Status post surgery 5 days ago for resection of the left first toe and portion of the metatarsal. -Clindamycin 300 mg by mouth every 6 hours 2 weeks; started August 24, complete on September 06 -Ceftriaxone 1 g IV daily x 2 weeks; started August 24, complete on September 06 -Dr. Solorio/Dr. Garza to see for surgical follow-up TYPE 2 DIABETES MELLITUS-glucose control fairly stable with current management -Continue outpatient medications including long-acting insulin -4 times a day glucometers -Moderate dose sliding scale Humulin THRUSH-likely secondary to antibiotic therapy as well as underlying diabetes -Mycelex Meena 5 times daily CHRONIC LOW BACK PAIN -Continue outpatient pain medication regimen MAINTENANCE ISSUES -DVT prophylaxis; begin Lovenox 40 mg subcutaneous daily -GI prophylaxis; not indicated -Gama catheter; not indicated -Nutrition; consistent carb diet, nothing by mouth after midnight -Nicotine dependence; not required CODE STATUS-FULL CODE ADMISSION STATUS-patient will be admitted to inpatient status, expect at least a 2 night hospital stay for evaluation and management of problems as outlined above. At the time of this admission I do not reasonably expected evaluation and management of this problem will require more than a 96 hour hospital stay. DISPOSITION-anticipate discharge to home after the hospital stay. PRIMARY CARE PROVIDER-Jordan Zuniga
[2018-08-26] MEDS: Loperamide 2 MG Cap PO PRN (16:38)
[2018-08-26] MEDS: Enoxaparin 40 MG/0.4 ML Syringe SUBCUT SCH (16:39)
[2018-08-26] MEDS: cefTRIAXone 1 GM in Sodium Chloride 0.9% 50 ML IV SCH (18:06)
[2018-08-26] MEDS: Liraglutide (rDNA Origin) 0.6 MG/0.1 ML 3 ML Pen SUBCUT SCH (22:10)
[2018-08-26] MEDS: TRESIBA SUBCUT SCH (22:11)
[2018-08-27] MEDS: Clindamycin HCl 150 MG Cap PO SCH ×2 (05:16→09:01)
[2018-08-27] MEDS: Clotrimazole 10 MG Troche PO SCH ×3 (06:15→13:55)
[2018-08-27] MEDS: Insulin Lispro 100 Unit/ML 3 ML KwikPen SUBCUT SCH ×2 (08:48→13:56)
[2018-08-27] MEDS: Aspirin 81 MG Tab.EC PO SCH (08:51)
[2018-08-27] MEDS: Lactobacillus Rhamnosus GG (Probiotic) Cap PO SCH (08:51)
[2018-08-27] MEDS: Gabapentin 300 MG Cap PO SCH ×2 (08:51→13:55)
[2018-08-27] MEDS: DULoxetine 30 MG Cap PO SCH (08:52)
[2018-08-27] MEDS: Spironolactone 25 MG Tab PO SCH (08:52)
[2018-08-27] MEDS: JARDIANCE 25 MG PO SCH (08:53)
[2018-08-27] MEDS: Acetaminophen/oxyCODONE 325-5 MG Tab PO PRN ×2 (08:59→14:00)
[2018-08-27 11:07] VITALS: BP 109/67; PULSE 72
--- NOTE | 2018-08-27 12:41 | PCM.DCSUM1 ---
Discharge Summary - Hospital Course Brief History: 58-year-old female with history of insulin-dependent diabetes mellitus and a diabetic foot ulcer of her left foot 2 was admitted from the clinic with concerns for a septic joint involving the left great toe. Diagnosis: Stroke: No - Discharge Data Discharge Date: 08/27/18 Discharge Disposition: DC/Tfer to [facility] 03 Condition: Good - Discharge Diagnosis/Problem(s) (1) Osteomyelitis of foot, left, acute SNOMED Code(s): 1222481889745267 ICD Code: M86.172 - OTHER ACUTE OSTEOMYELITIS, LEFT ANKLE AND FOOT Status: Acute (2) Chronic ulcer of left foot with necrosis of muscle SNOMED Code(s): 834813632 ICD Code: L97.523 - NON-PRS CHRONIC ULCER OTH PRT LEFT FOOT W NECROSIS OF MUSCLE Status: Acute (3) Diabetes mellitus, type II, insulin dependent SNOMED Code(s): 682508835 ICD Code: E11.9 - TYPE 2 DIABETES MELLITUS WITHOUT COMPLICATIONS; Z79.4 - CAN WORKER (CURRENT) USE OF INSULIN Status: Chronic - Patient Summary/Data Operative Procedure(s) Performed: Partial ray amputation of the left first metatarsal - Dr Garza Consults: Consultations 08/21/18 14:17 Consult to Physical Therapy [PT Evaluation and Treatment] [CONS] Routine Please Evaluate and Treat. PT Reason for Consult: transfer and knee scooter training This query below is only for informational purposes and is not editable. Admission Diagnosis/Problem: Diabetic foot ulcer Hospital Course: Hernán was admitted from the podiatry clinic with concerns for septic arthritis and possibly osteomyelitis involving the left great toe. She was started on broad-spectrum antibiotics. The morning after admission she had an ankle brachial index completed which was normal though only monophasic flow is noted on the left side. An MRI of the left foot showed evidence for septic arthritis involving the MTP joint on the great toe and also an area of localized osteomyelitis involving the medial head of the first metatarsal. Later that morning she went to the operating room and had a partial ray amputation involving the left great toe and first metatarsal. Cultures were obtained at that time. Broad spectrum antibiotics were continued. Postoperative course was uneventful. The patient's pain was well-controlled. When culture results were available antibiotics were adjusted to clindamycin and ceftriaxone. Her cultures grew out group B beta-hemolytic strep, strep viridans and gram- positive rods. She has been afebrile. Her white blood cell count has been normal. Vital signs have been stable. Pain has been well-controlled. Diabetes has been well-controlled. Kidney function has been stable. Physical therapy was recommended to help improve mobility. The patient will need IV antibiotics through September 06 and she does not feel she will be able to do this at home. The plan is for her to be [facility] a [facility] for therapy as well as IV antibiotics for the next 9 days (total of 14 days of IV antibiotics) . She will also be on oral clindamycin in addition to the IV ceftriaxone. - Patient Instructions Diet: Diabetic Diet Activity: As Tolerated Showering/Bathing: May Shower Wound/Incision Care: Change Dressing Daily Notify Provider of: Fever, Increased Pain, Nausea and/or Vomiting Other/Special Instructions: 1. You were in the hospital for management of septic arthritis and osteomyelitis involving your left foot. Your condition has been improving with antibiotic therapy and did also require surgical intervention. Because of the osteomyelitis I do recommend a total of 2 weeks of antibiotic therapy. You will need to continue both clindamycin by mouth and ceftriaxone through the IV route through the end of the day on September 06. - Please complete routine PICC line cares for long-term antibiotics. - Daily dressing changes per above instructions. 2. Accuchecks BID AC. 3. Follow up with Kayla Spear in one week - Discharge Plan *PRESCRIPTION DRUG MONITORING PROGRAM REVIEWED*: Not Applicable *COPY OF PRESCRIPTION DRUG MONITORING REPORT IN PATIENT [place]: Not Applicable Prescriptions/Med Rec: Acetaminophen [Tylenol] 650 mg PO Q4H PRN #100 tablet PRN Reason: Pain (Mild 1-3)/fever Acetaminophen with Codeine [Tylenol with Codeine #3 Tablet] 1 tab PO Q4H PRN # 90 tablet PRN Reason: Pain (Moderate 4-6) cefTRIAXone [Rocephin] 1 gm IV Q24H #9 vial Clindamycin HCl 300 mg PO QID #38 capsule Clotrimazole [Mycelex] 10 mg PO 5XDAY #18 rossi Lactobacillus Rhamnosus GG [Culturelle] 1 cap PO BID #30 cap Home Medications: Home Meds Insulin Degludec [Tresiba Flextouch U-200] 64 units SUBCUT BEDTIME 03/28/16 [ History] Liraglutide [Victoza] 1.8 mg SUBCUT BEDTIME 12/28/16 [History] Spironolactone [Aldactone] 50 mg PO BID 02/08/17 [History] DULoxetine [Cymbalta] 60 mg PO DAILY 05/03/17 [History] Aspirin [Halfprin] 1 tab PO DAILY 08/20/18 [History] Gabapentin [Neurontin] 1,800 mg PO TID 08/20/18 [History] atorvaSTATin [Lipitor] 10 mg PO DAILY 08/20/18 [History] Empagliflozin [Jardiance] 25 mg PO DAILY 08/21/18 [History] Acetaminophen [Tylenol] 650 mg PO Q4H PRN #100 tablet 08/27/18 [Rx] Acetaminophen with Codeine [Tylenol with Codeine #3 Tablet] 1 tab PO Q4H PRN # 90 tablet 08/27/18 [Rx] Clindamycin HCl 300 mg PO QID #38 capsule 08/27/18 [Rx] Clotrimazole [Mycelex] 10 mg PO 5XDAY #18 rossi 08/27/18 [Rx] Lactobacillus Rhamnosus GG [Culturelle] 1 cap PO BID #30 cap 08/27/18 [Rx] cefTRIAXone [Rocephin] 1 gm IV Q24H #9 vial 08/27/18 [Rx] Oxygen Therapy Mode: Room Air Referrals: Suresh Garza DPM [Physician] - (1 week - f/u hospital stay for left foot osteomyelitis) - Discharge Summary/Plan Comment DC Time >30 min.: Yes (45 - new [facility] discharge) - Patient Data Vitals - Most Recent: Last Vital Signs Temp 35.6 C 08/27/18 11:00 Pulse 72 08/27/18 11:00 Resp 18 08/27/18 11:00 BP 109/67 08/27/18 11:00 Pulse Ox 96 08/27/18 11:00 Weight - Most Recent: 173.045 kg I&O - Last 24 hours: Intake & Output 08/26/18 08/27/18 08/27/18 22:59 06:59 14:59 Intake Total 900 300 340 Balance 900 300 340 Med Orders - Current: Current Medications Acetaminophen (Tylenol) 650 mg PO Q4H PRN PRN Reason: Pain (Mild 1-3)/fever Acetaminophen/Codeine Phosphate (Tylenol With Codeine No.3 300mg/30mg) 1 - 2 tab PO Q4H PRN PRN Reason: Pain Last Admin: 08/22/18 11:29 Dose: 1 tab Aspirin (Halfprin) 81 mg PO DAILY [facility] Last Admin: 08/27/18 08:51 Dose: 81 mg Clindamycin HCl (Cleocin) 300 mg PO Q6H [facility] Last Admin: 08/27/18 09:01 Dose: 300 mg Clotrimazole (Mycelex) 10 mg PO 5XDAY [facility] Last Admin: 08/27/18 09:01 Dose: 10 mg Dextrose (Glutose 15) 15 gm PO ONETIME PRN PRN Reason: Hypoglycemia Dextrose/Water (Dextrose 50% In Water) 50 ml IV ONETIME PRN PRN Reason: Hypoglycemia Duloxetine HCl (Cymbalta) 60 mg PO DAILY [facility] Last Admin: 08/27/18 08:52 Dose: 60 mg Enoxaparin Sodium (Lovenox) 40 mg SUBCUT Q24H [facility] Last Admin: 08/26/18 16:39 Dose: 40 mg Gabapentin (Neurontin) 1,800 mg PO TID [facility] Last Admin: 08/27/18 08:51 Dose: 1,800 mg Ceftriaxone Sodium 1 gm/ (Sodium Chloride) 50 mls @ 100 mls/hr IV Q24H [facility] Last Admin: 08/26/18 18:06 Dose: 100 mls/hr Insulin Human Lispro (Humalog) 0 unit SUBCUT QIDACANDBED [facility]; Protocol Last Admin: 08/27/18 08:48 Dose: Not Given Lactobacillus Rhamnosus (Culturelle) 1 cap PO BID [facility] Last Admin: 08/27/18 08:51 Dose: 1 cap Liraglutide (Victoza) 1.8 mg SUBCUT BEDTIME [facility] Last Admin: 08/26/18 22:10 Dose: 1.8 mg Loperamide HCl (Imodium) 2 mg PO Q4H PRN PRN Reason: Diarrhea Last Admin: 08/26/18 16:38 Dose: 2 mg Ondansetron HCl (Zofran) 4 mg IV Q4H PRN PRN Reason: Nausea/Vomiting Oxycodone/Acetaminophen (Percocet 325-5 Mg) 1 - 2 tab PO Q4H PRN PRN Reason: Pain Last Admin: 08/27/18 08:59 Dose: 1 tab Tresiba Ptom 0 each SUBCUT BEDTIME [facility] Last Admin: 08/26/18 22:11 Dose: 1 each Jardiance 25mg (Ptom) 0 each PO DAILY@0800 [facility] Last Admin: 08/27/18 08:53 Dose: 1 each Polyethylene Glycol (Miralax) 17 gm PO DAILY PRN PRN Reason: Constipation Sodium Chloride (Saline Flush) 10 ml FLUSH ASDIRECTED PRN PRN Reason: Keep Vein Open Spironolactone (Aldactone) 50 mg PO BID [facility] Last Admin: 08/27/18 08:52 Dose: 50 mg Discontinued Medications Bupivacaine HCl (Marcaine 0.5%) Confirm Administered Dose 50 ml .ROUTE .STK-MED ONE Stop: 08/21/18 12:31 Last Admin: 08/21/18 13:44 Dose: 20 ml Clindamycin HCl (Cleocin) 300 mg PO Q6H [facility] Last Admin: 08/25/18 05:30 Dose: 300 mg Fentanyl (Sublimaze) Confirm Administered Dose 100 mcg .ROUTE .STK-MED ONE Stop: 08/21/18 11:43 Gabapentin (Neurontin) 1,200 mg PO TID [facility] Last Admin: 08/21/18 11:13 Dose: Not Given Gadoteridol (Prohance) 20 ml IV . DIRECTED [facility] Stop: 08/21/18 10:00 Last Admin: 08/21/18 09:10 Dose: 20 ml Heparin Sodium (Porcine) (Heparin Sodium) 5,000 units SUBCUT Q8H [facility] Stop: 08/21/18 02:01 Last Admin: 08/21/18 01:59 Dose: 5,000 units Piperacillin/Tazobactam/ (Dextrose 3.375 gm/ Premix) 50 mls @ 100 mls/hr IV Q6H [facility] Last Admin: 08/24/18 17:05 Dose: 100 mls/hr Vancomycin HCl 2.5 gm/ Sodium (Chloride) 500 mls @ 250 mls/hr IV ONETIME ONE Stop: 08/20/18 18:59 Last Admin: 08/20/18 17:15 Dose: 250 mls/hr Sodium Chloride (Normal Saline) 1,000 mls @ 125 mls/hr IV ASDIRECTED [facility] Last Admin: 08/22/18 01:49 Dose: 125 mls/hr Vancomycin HCl 2 gm/ Sodium (Chloride) 500 mls @ 250 mls/hr IV Q12H [facility] Last Admin: 08/22/18 17:20 Dose: Not Given Lactated Ringer's (Ringers, Lactated) Confirm Administered Dose 1,000 mls @ as directed .ROUTE .STK-MED ONE Stop: 08/21/18 12:59 Vancomycin HCl 2 gm/ Sodium (Chloride) 500 mls @ 250 mls/hr IV Q18H [facility] Last Admin: 08/24/18 12:24 Dose: 250 mls/hr Midazolam HCl (Versed 1 Mg/Ml) Confirm Administered Dose 2 mg .ROUTE .STK-MED ONE Stop: 08/21/18 11:43 (Insulin Degludec [ Tresiba Flextouch U- 200]Pom 64 units SUBCUT BEDTIME [facility] Last Admin: 08/20/18 22:00 Dose: Not Given Empagliflozin ( Jardiance) 10 Mg Pom 0 mg PO DAILY [facility] Last Admin: 08/21/18 11:13 Dose: Not Given Jardiance 25mg (Ptom) 0 each PO DAILY@0600 [facility] Last Admin: 08/23/18 07:24 Dose: 1 each Propofol (Diprivan 20 Ml) Confirm Administered Dose 200 mg .ROUTE .STK-MED ONE Stop: 08/21/18 11:43 Propofol (Diprivan 20 Ml) Confirm Administered Dose 200 mg .ROUTE .STK-MED ONE Stop: 08/21/18 12:36 Propofol (Diprivan 20 Ml) Confirm Administered Dose 200 mg .ROUTE .STK-MED ONE Stop: 08/21/18 12:43 - Exam Quality Assessment: Denies: Supplemental Oxygen General: Reports: Alert, Oriented, Cooperative, No Acute Distress Lungs: Reports: Normal Respiratory Effort GI/Abdominal Exam: Soft, No Distention Extremities: No Pedal Edema, Other (left foot wrapped with dressing and coban) Skin: Reports: Warm, Dry Wound/Incisions: Reports: Dressing Dry and Intact, No Drainage Psy/Mental Status: Reports: Alert, Normal Affect
[2018-08-27] MEDS: Loperamide 2 MG Cap PO PRN (13:30)
== END 2018-08-27 14:30 | DRG 314 ==
LOC: JP.MS 14:35
PROVIDERS: ADMIT Hospitalist; ATTEND Internal Medicine
PROC: 0Y6Q0Z0 Detachment at Left 1st Toe, Complete, Open Approach (ICD-10-PCS; principal; 2018-08-21)
PROC: 0QBP0ZZ Excision of Left Metatarsal, Open Approach (ICD-10-PCS; 2018-08-21)
PROC: 05HY33Z Insertion of Infusion Device into Upper Vein, Percutaneous Approach (ICD-10-PCS; 2018-08-24)
PROC: 3E03329 Introduction of Other Anti-infective into Peripheral Vein, Percutaneous Approach (ICD-10-PCS; 2018-08-24)
DX: E11.622 Type 2 diabetes mellitus with other skin ulcer (principal); E11.65 Type 2 diabetes mellitus with hyperglycemia; E11.42 Type 2 diabetes mellitus with diabetic polyneuropathy; M86.172 Other acute osteomyelitis, left ankle and foot; B95.1 Streptococcus, group B, as the cause of diseases classified elsewhere; B95.4 Other streptococcus as the cause of diseases classified elsewhere; B96.89 Other specified bacterial agents as the cause of diseases classified elsewhere; B37.0 Candidal stomatitis; Z79.4 Long term (current) use of insulin; M00.9 Pyogenic arthritis, unspecified; L97.523 Non-pressure chronic ulcer of other part of left foot with necrosis of muscle; Z79.2 Long term (current) use of antibiotics; F32.9 Major depressive disorder, single episode, unspecified; M54.5 Low back pain; G89.29 Other chronic pain; H54.7 Unspecified visual loss; Z79.82 Long term (current) use of aspirin
CPT/HCPCS: 36415; 71045; 73720-LT; 76000; 80048; 80053; 80202; 82962; 83735; 85025; 85027; 85651; 86140; 87070; 87075; 87077; 87205; 88305; 88311; 93005; 93922; 97110-GP; 97161-GP; 97530-GP; 97535-GP; A9270-GY; A9576; A9579; C1751; J0696; J1644; J1650; J1815; J2250; J2543; J2704; J3010; J3370; J3490; J7030; J7040; J7050; J7120

== ENCOUNTER 2020-10-14 12:09 | Emergency (ER) | payer MEDICAID ==
--- NOTE | 2020-10-14 12:53 | EDM.PDOC ---
ED HPI GENERAL MEDICAL PROBLEM - General Chief Complaint: General Stated Complaint: LOW BP Time Seen by Provider: 10/14/20 12:40 Source of Information: Reports: Patient, Old Records, RN History Limitations: Reports: No Limitations - History of Present Illness INITIAL COMMENTS - FREE TEXT/NARRATIVE: 60 yo female was at the pain clinic in town today and was referred to the ER for low BP in the 70's. She is wheel chair bound. She says she felt the same there as she does now in the ER with a BP of 115 which is a little higher than her normal. Saw Jordan Zuniga 2 weeks ago and sees him again in 2 more weeks. No recent med changes. Onset: Today Onset Date: 10/14/20 Duration: Minutes:, Resolved Prior to Arrival Location: Reports: Generalized Quality: Reports: Other (no pain) Severity: Moderate (low BP) Improves with: Reports: Other (time) Worsens with: Reports: Other (unknown) Context: Reports: Other (See HPI) Associated Symptoms: Reports: Other (? mild light-headedness) Treatments [employer] REPAIRER: Reports: Other (see below) (none) - Related Data Allergies Allergy/AdvReac Type Severity Reaction Status Date / Time pregabalin [From Lyrica] Allergy Chest Pain Verified 10/14/20 11:30 Home Meds: Home Meds Insulin Degludec [Tresiba Flextouch U-200] 64 units SUBCUT BEDTIME 03/28/16 [History] Spironolactone [Aldactone] 50 mg PO BID 02/08/17 [History] DULoxetine [Cymbalta] 90 mg PO DAILY 05/03/17 [History] Aspirin [Halfprin] 1 tab PO DAILY 08/20/18 [History] Gabapentin [Neurontin] 1,200 mg PO TID 08/20/18 [History] atorvaSTATin [Lipitor] 10 mg PO DAILY 08/20/18 [History] Empagliflozin [Jardiance] 25 mg PO DAILY 08/21/18 [History] Acetaminophen [Tylenol] 650 mg PO Q4H PRN #100 tablet 08/27/18 [Rx] Acetaminophen with Codeine [Tylenol with Codeine #3 Tablet] 1 tab PO Q4H PRN #90 tablet 08/27/18 [Rx] Lactobacillus Rhamnosus GG [Culturelle] 1 cap PO BID #30 cap 08/27/18 [Rx] Doxepin HCl [Doxepin] 30 mg PO BEDTIME 12/25/19 [History] Ondansetron [Zofran ODT] 4 mg PO Q8H PRN 02/12/20 [History] Baclofen 10 mg PO DAILY PRN 06/10/20 [History] Dulaglutide [Trulicity] 3 mg SQ .WEEKLY 06/10/20 [History] Indomethacin 50 mg PO DAILY PRN 06/10/20 [History] Insulin Glargine,Hum.Rec.Anlog [Basaglar Kwikpen U-100] 64 unit SQ BEDTIME 10/14 [History] Past Medical History HEENT History: Reports: Cataract, Impaired Vision PARTS CLEANER History: Reports: , Spontaneous Musculoskeletal History: Reports: Back Pain, Chronic, Fracture Psychiatric History: Reports: Depression Endocrine/Metabolic History: Reports: Diabetes, Type II, Obesity/BMI 30+ - Infectious Disease History Infectious Disease History: Reports: Chicken Pox, Measles, Mumps - Past Surgical History HEENT Surgical History: Reports: Cataract Surgery Musculoskeletal Surgical History: Reports: Other (See Below) Other Musculoskeletal Surgeries/Procedures:: elbow surgery Dermatological Surgical History: Reports: Other (See Below) Social & Family History - Family History Family Medical History: No Pertinent Family History - Tobacco Use Tobacco Use Status *Q: Never Tobacco User - Caffeine Use Caffeine Use: Reports: Coffee ED ROS GENERAL - Review of Systems Review Of Systems: See Below Constitutional: Reports: No Symptoms HEENT: Reports: No Symptoms Respiratory: Reports: No Symptoms Cardiovascular: Reports: Lightheadedness (mild) Endocrine: Reports: No Symptoms GI/Abdominal: Reports: No Symptoms : Reports: No Symptoms Musculoskeletal: Reports: No Symptoms Skin: Reports: No Symptoms Neurological: Reports: No Symptoms ED EXAM, GENERAL - Physical Exam Exam: See Below Exam Limited By: No Limitations General Appearance: Alert, WD/WN, No Apparent Distress, Obese Eye Exam: Bilateral Eye: Normal Inspection Ears: Normal External Exam, Normal Canal, Hearing Grossly Normal Ear Exam: Bilateral Ear: Auricle Normal, Canal Normal Nose: Normal Inspection, No Blood Throat/Mouth: Normal Inspection, Normal Lips, Normal Oropharynx, Normal Voice, No Airway Compromise Head: Atraumatic, Normocephalic Neck: Normal Inspection Respiratory/Chest: No Respiratory Distress, Lungs Clear, Normal Breath Sounds, No Accessory Muscle Use Cardiovascular: Regular Rate, Rhythm, No Edema GI/Abdominal: Normal Bowel Sounds, Soft, Non-Tender, No Distention Back Exam: Normal Inspection Extremities: Normal Inspection Neurological: Alert, Oriented, CN II-XII Intact, Normal Cognition, No Motor/Sensory Deficits Psychiatric: Normal Affect, Normal Mood Skin Exam: Warm, Dry, Intact, Normal Color, No Rash Course - Orders/Labs/Meds Orders: Active Orders 24 hr Category Date Time Status BASIC METABOLIC PANEL,BMP [CHEM] Stat Lab 10/14/20 12:38 Received Departure - Departure Time of Disposition: 12:53 Disposition: Home, Self-Care 01 Condition: Good Clinical Impression: Normal blood pressure Clinical Impression: (Ruled Out): Normal systolic blood pressure response after exercise - Discharge Information *PRESCRIPTION DRUG MONITORING PROGRAM REVIEWED*: Not Applicable *COPY OF PRESCRIPTION DRUG MONITORING REPORT IN PATIENT [place]: Not Applicable Referrals: Jordan Zuniga [employer] [Primary Care Provider] - Additional Instructions: Continue current meds. See your provider in 2 weeks, sooner if needed. - My Orders Last 24 Hours: My Active Orders 10/14/20 12:38 BASIC METABOLIC PANEL,BMP [CHEM] Stat - Assessment/Plan Last 24 Hours: My Active Orders 10/14/20 12:38 BASIC METABOLIC PANEL,BMP [CHEM] Stat
[2020-10-14 13:02] VITALS: BP 115/68; PULSE 81
== END 2020-10-14 13:07 | disposition home or self-care (01) ==
LOC: JP.ED 12:09
DX: I95.9 Hypotension, unspecified (principal); R42 Dizziness and giddiness; E11.9 Type 2 diabetes mellitus without complications; E66.9 Obesity, unspecified; Z68.38 Body mass index [BMI] 38.0-38.9, adult; Z88.8 Allergy status to other drugs, medicaments and biological substances; Z79.82 Long term (current) use of aspirin; Z79.4 Long term (current) use of insulin; Z79.899 Other long term (current) drug therapy
CPT/HCPCS: 36415; 80048; 99284

== ENCOUNTER 2021-06-30 18:40 | Emergency (ER) | payer OTHER ==
[2021-06-30] MEDS ORDERED: cefTRIAXone 2 GM in Sodium Chloride 0.9% 50 ML IV ONE (19:03)
[2021-06-30 19:53] LABS: CORONAVIRUS COVID-19 NAA NEGATIVE (NEGATIVE)
[2021-06-30 20:35] VITALS: BP 137/70; PULSE 89
== END 2021-06-30 21:15 | disposition home or self-care (01) ==
LOC: JP.ED 18:40
DX: N30.01 Acute cystitis with hematuria (principal); R53.1 Weakness; E11.9 Type 2 diabetes mellitus without complications; E66.9 Obesity, unspecified; Z68.39 Body mass index [BMI] 39.0-39.9, adult; Z88.8 Allergy status to other drugs, medicaments and biological substances; Z79.899 Other long term (current) drug therapy; Z79.82 Long term (current) use of aspirin; Z79.4 Long term (current) use of insulin; Z20.822 Contact with and (suspected) exposure to COVID-19
CPT/HCPCS: 0241U; 36415; 71045; 80053; 81001; 83605; 84145; 85025; 87086; 87088; 87186; 96365; 99283; 99285-25; J0696

== ENCOUNTER 2021-07-01 09:17 | Emergency (ER) | payer OTHER ==
[2021-07-01] MEDS ORDERED: cefTRIAXone 2 GM in Sodium Chloride 0.9% 50 ML IV ONE (09:53)
[2021-07-01 12:41] VITALS: BP 115/66; PULSE 77
== END 2021-07-01 13:15 ==
LOC: JP.ED 09:17
DX: N39.0 Urinary tract infection, site not specified (principal); E11.9 Type 2 diabetes mellitus without complications; E66.9 Obesity, unspecified; Z68.39 Body mass index [BMI] 39.0-39.9, adult; Z79.899 Other long term (current) drug therapy; Z88.8 Allergy status to other drugs, medicaments and biological substances; Z79.82 Long term (current) use of aspirin; Z79.4 Long term (current) use of insulin
CPT/HCPCS: 36415; 80053; 83605; 85025; 86140; 96374; 99284; 99284-25; J0696

== ENCOUNTER 2022-04-25 21:43 | Emergency (ER) | payer MEDICAID, OTHER ==
[2022-04-25] MEDS ORDERED: Sodium Chloride 0.9% 10 ML Syringe FLUSH PRN (22:06)
[2022-04-25 22:53] LABS: ESTIMATED GFR 46 mL/min (>60); TROPONIN I HIGH SENSITIVITY 17.2 pg/mL (<=60.3)
[2022-04-25] MEDS ORDERED: cefTRIAXone 1 GM in Sodium Chloride 0.9% 50 ML IV ONE (23:18)
[2022-04-25] MEDS ORDERED: Furosemide 40 MG/4 ML VIAL IVPUSH ONE (23:18)
[2022-04-26] MEDS ORDERED: 50% Dextrose in Water 50 ML Syringe IVPUSH PRN (01:06)
[2022-04-26] MEDS ORDERED: Baclofen 10 MG Tab PO PRN (01:06)
[2022-04-26] MEDS ORDERED: Ondansetron 4 MG Tab.DIS PO PRN (01:06)
[2022-04-26] MEDS ORDERED: Glucagon,Human Recombinant 1 MG Vial IM PRN (01:06)
[2022-04-26] MEDS ORDERED: INDOMETHACIN 50 MG PO PRN (01:06)
[2022-04-26] MEDS ORDERED: CLINDAMYCIN PHOSPHATE TOP PRN (01:06)
[2022-04-26] MEDS ORDERED: Non-Formulary Medication 1 Each (Dulaglutide [Trulicity] 4.5 MG/0.5 ML Pen.Injctr) SUBCUT SCH (01:15)
[2022-04-26] MEDS ORDERED: Non-Formulary Medication 1 Each (Dulaglutide [Trulicity] 3 MG/0.5 ML Pen.Injctr) SQ SCH (01:15)
[2022-04-26] MEDS ORDERED: DOXEPIN HCL 10 MG PO SCH (01:20)
[2022-04-26] MEDS ORDERED: Non-Formulary Medication 1 Each (Gabapentin [Neurontin] 600 MG Tablet) PO SCH (01:20)
[2022-04-26 05:37] VITALS: BP 102/61; PULSE 99
[2022-04-26] MEDS ORDERED: Non-Formulary Medication 1 Each (Rivaroxaban [Xarelto] 20 MG Tablet) PO SCH (09:00)
[2022-04-26] MEDS ORDERED: atorvaSTATin 10 MG Tab PO SCH (09:00)
[2022-04-26] MEDS ORDERED: Non-Formulary Medication 1 Each (Empagliflozin [Jardiance] 25 MG Tablet) PO SCH (09:00)
[2022-04-26] MEDS ORDERED: Non-Formulary Medication 1 Each (Insulin Aspart [Novolog] 100 UNIT/ML Pen) SUBCUT SCH (09:00)
[2022-04-26] MEDS ORDERED: Non-Formulary Medication 1 Each (Spironolactone [Aldactone] 50 MG Tablet) PO SCH (09:00)
[2022-04-26] MEDS ORDERED: Non-Formulary Medication 1 Each (Duloxetine [Cymbalta] 60 MG Cap) PO SCH (21:00)
[2022-04-26] MEDS ORDERED: Insulin Glargine,Human Rec. Analog 100 Units/ML 3 ML Pen SUBCUT SCH (21:00)
== END 2022-04-26 07:54 ==
LOC: JP.ED 21:43
DX: N30.01 Acute cystitis with hematuria (principal); I50.9 Heart failure, unspecified; R09.02 Hypoxemia; E11.9 Type 2 diabetes mellitus without complications; E66.9 Obesity, unspecified; Z68.41 Body mass index [BMI] 40.0-44.9, adult; Z87.891 Personal history of nicotine dependence; Z88.8 Allergy status to other drugs, medicaments and biological substances; Z79.899 Other long term (current) drug therapy; Z79.4 Long term (current) use of insulin; Z79.01 Long term (current) use of anticoagulants; Z20.822 Contact with and (suspected) exposure to COVID-19
CPT/HCPCS: 36415; 71045; 80053; 81001; 82947; 83605; 83880; 84484; 85025; 87635; 93005; 96365; 96375; 99285; J0696; J1815; J1940; J3490; 93010; 99284; U0002